=== PATIENT | female | born 1995 | race Caucasian/White ===

== ENCOUNTER → 2019-11-15 15:25 | Outpatient (CLI) | payer OTHER, SELFPAY ==
[2019-11-15 16:43] LABS: hCG Titer Quant., Serum 294 mIU/mL (1-3)
== END ==
PROVIDERS: Referring Provider Obstetrics & Gynecology; Visit Provider Obstetrics & Gynecology
DX: Z78.9 Other specified health status (principal)
CPT/HCPCS: 36415; 84702

== ENCOUNTER → 2019-11-17 13:03 | Outpatient (CLI) | payer OTHER, SELFPAY ==
[2019-11-17 13:52] LABS: hCG Titer Quant., Serum 738 mIU/mL (1-3)
== END ==
LOC: LAB 13:05
PROVIDERS: Visit Provider Obstetrics & Gynecology
DX: O20.0 Threatened abortion (principal)
CPT/HCPCS: 84702

== ENCOUNTER → 2019-12-19 16:08 | Outpatient (CLI) | payer OTHER, SELFPAY ==
[2019-12-19 10:58] VITALS: BMI 32.6
[2019-12-19 19:07] LABS: Chlamydia Trachomatis by PCR Negative (Negative); Neisserai gonorrhoeae by PCR Negative (Negative); Probe Check PASS; Sample Adequacy Control PASS; Specimen Processing Control PASS
[2019-12-24 12:29] LABS: HPV Reflexed? NOT INDICATED
== END ==
PROVIDERS: Referring Provider Obstetrics & Gynecology; Visit Provider Obstetrics & Gynecology
DX: O09.90 Supervision of high risk pregnancy, unspecified, unspecified trimester (principal); Z12.4 Encounter for screening for malignant neoplasm of cervix
CPT/HCPCS: 87491; 87591; 88175; G0145

== ENCOUNTER → 2020-01-04 14:26 | Outpatient (CLI) | payer OTHER, SELFPAY ==
[2019-12-19 10:58] VITALS: BMI 32.6
[2020-01-04 15:34] LABS: Absolute Lymphocyte Count 2.07 X10^3/uL (0.83-4.51); Basophil# 0.03 X10^3/uL; Basophil% 0.3 % (0-1); Eosinophil# 0.12 X10^3/uL; Eosinophils% 1.4 % (0-5); Hematocrit 39.4 % (37-47); Hemoglobin 13.1 g/dL (12.0-15.0); Lymphocyte # 2.07 X10^3/ul (4.0); Lymphocyte % 23.7 % (19-41); Mean Corp Hgb Conc 33.2 g/dL (32-36); Mean Corpuscular Hgb 29.4 pg (27.0-32.0); Mean Corpuscular Volume 88.5 fL (81-99); Monocyte# 0.45 X10^3/uL; Monocyte% 5.2 % (0-10); NRBC Flagged by Analyzer 0 % (0-5); Neutrophil # 6.03 X10^3/uL (2.7-7.7); Neutrophil % 69.2 % (47-70); Platelet Count 243 K/mm3 (150-450); RBC Distribution Width CV 11.9 % (11.6-14.6); RBC Distribution Width SD 38.1 fl (35.1-43.9); Red Blood Count 4.45 M/mm3 (4.2-5.4); White Blood Count 8.7 K/mm3 (4.4-11.0)
[2020-01-04 15:45] LABS: NATERA MAILED SPECIMEN
[2020-01-04 16:10] LABS: Amphetamine Urine VISTA NEGATIVE (<1000 ng/mL); Barbiturate Urine VISTA NEGATIVE (< 200 ng/mL); Benzodiazepine Urine VISTA NEGATIVE (< 200 ng/mL); Cocaine Urine VISTA NEGATIVE (< 300 ng/mL); Ecstacy Urine VISTA NEGATIVE (< 500 ng/mL); Methadone Urine VISTA NEGATIVE (< 300 ng/mL); PCP Urine VISTA NEGATIVE (< 25 ng/mL); THC Urine VISTA NEGATIVE (< 50 ng/mL); Vista UDS pH Range 5
[2020-01-07 11:31] LABS: HIV - WCH Non-Reactive (Nonreactive); Hepatitis B Surface Antigen Non-Reactive (Nonreactive); Hepatitis C Antibody Non-Reactive (Nonreactive); Rubella IgG 117.9 IU/mL
[2020-01-10 02:25] LABS: Rapid Plasmin Reagin (RPR) NONREACTIVE (NONREACTIVE)
== END ==
PROVIDERS: Referring Provider Obstetrics & Gynecology; Visit Provider Obstetrics & Gynecology
DX: Z34.81 Encounter for supervision of other normal pregnancy, first trimester (principal); Z31.430 Encounter of female for testing for genetic disease carrier status for procreative management; O09.90 Supervision of high risk pregnancy, unspecified, unspecified trimester
CPT/HCPCS: 80307; 85025; 86592; 86703; 86762; 86803; 86850; 86900; 86901; 87086; 87088; 87340

== ENCOUNTER → 2020-02-22 11:32 | Outpatient (CLI) | payer OTHER, SELFPAY ==
[2020-02-22 11:26] VITALS: BMI 32.6
== END ==
PROVIDERS: Referring Provider Obstetrics & Gynecology; Visit Provider Obstetrics & Gynecology
DX: Z36.9 Encounter for antenatal screening, unspecified (principal); Z3A.00 Weeks of gestation of pregnancy not specified
CPT/HCPCS: 36415

== ENCOUNTER 2020-04-30 06:50 | Outpatient (CLI) | payer OTHER, SELFPAY ==
[2020-04-18 11:21] VITALS: BMI 32.6
[2020-04-30 07:14] VITALS: BP 110/73; PULSE 91; TEMP 36.4
[2020-04-30 07:45] LABS: ROM Internal Control Test YES-OK TO RESULT pt. (Internal QC)
[2020-04-30 08:04] LABS: ROM Patient Test Negative (Negative)
[2020-04-30 09:53] VITALS: BMI 35.6
--- NOTE | 2020-05-01 21:42 | OB.TRI.PN_ITS ---
Progress Notes Date of Service: 04/30/20 Progress Note: Patient presents for triage evaluation secondary to false labor FHT: 145 Moderate variability reactive no decelerations category I tracing [place]: No regular contractions Assessment and plan: False labor no cervical change negative ROM plus reactive NST, reassuring maternal and status patient discharged to home to follow- up scheduled. See problem list details for additional plan information. Laboratory Studies: Laboratory Tests 04/30/20 Range/Units 07:30 Vag Amniotic Fld Detect Negative (Negative) Multi Select Codes - Urinary/Genital Urinary/Genital CPT Codes: 16428-59 non-stress test Interp
[2020-06-18 01:32] VITALS: BP 131/82
[2020-06-18 01:33] VITALS: PULSE 80; O2SAT 98
[2020-06-18 01:44] VITALS: PULSE 78; O2SAT 97
== END 2020-04-30 08:40 | disposition home or self-care (01) ==
LOC: WPOUT 07:08 → WP 07:08
PROVIDERS: Referring Provider Obstetrics & Gynecology; Visit Provider Obstetrics & Gynecology
DX: O47.9 False labor, unspecified (principal); Z3A.00 Weeks of gestation of pregnancy not specified
CPT/HCPCS: 59025; 59050; 84112; 99218; G0378

== ENCOUNTER → 2020-05-02 12:31 | Outpatient (CLI) | payer OTHER, SELFPAY ==
[2020-05-02 12:19] VITALS: BMI 35.6
[2020-05-02 13:19] LABS: Absolute Neutrophil Count 5.9 X10^3/uL (2.0-7.7); Basophil# 0.02 X10^3/uL; Basophil% 0.3 % (0-1); Eosinophil# 0.07 X10^3/uL; Eosinophils% 0.9 % (0-5); Hematocrit 33.5 % (37-47); Hemoglobin 11.1 g/dL (12.0-15.0); Lymphocyte % 16.9 % (19-41); Mean Corp Hgb Conc 33.1 g/dL (32-36); Mean Corpuscular Hgb 30.2 pg (27.0-32.0); Mean Corpuscular Volume 91.3 fL (81-99); Mean Platelet Vol. 9.6 fl (6.2-12.0); Monocyte# 0.31 X10^3/uL; NRBC Flagged by Analyzer 0 % (0-5); Neutrophil # 5.94 X10^3/uL (2.7-7.7); Neutrophil % 77.4 % (47-70); Platelet Count 232 K/mm3 (150-450); RBC Distribution Width CV 12.9 % (11.6-14.6); RBC Distribution Width SD 42.7 fl (35.1-43.9); Red Blood Count 3.67 M/mm3 (4.2-5.4); White Blood Count 7.7 K/mm3 (4.4-11.0)
[2020-05-02 13:42] LABS: Glucose Challenge Gest 1H 50g 145 mg/dL (70-140)
== END ==
PROVIDERS: Referring Provider Obstetrics & Gynecology; Visit Provider Obstetrics & Gynecology
DX: O09.90 Supervision of high risk pregnancy, unspecified, unspecified trimester (principal); Z3A.00 Weeks of gestation of pregnancy not specified
CPT/HCPCS: 36415; 82950; 85025

== ENCOUNTER → 2020-05-07 10:14 | Outpatient (CLI) | payer OTHER, SELFPAY ==
[2020-05-02 12:19] VITALS: BMI 35.6
[2020-05-07 12:27] LABS: Glucose GTT-Gestational 1 Hr 144 mg/dL (<190)
[2020-05-07 12:34] LABS: Glucose GTT-Gestation. Fasting 79 mg/dL (<105)
[2020-05-07 13:52] LABS: Glucose GTT-Gestational 2 Hr 102 mg/dL (<165)
[2020-05-07 14:06] LABS: Glucose GTT-Gestational 3 Hr 84 L (<145)
== END ==
PROVIDERS: Referring Provider Obstetrics & Gynecology; Visit Provider Obstetrics & Gynecology
DX: O99.810 Abnormal glucose complicating pregnancy (principal); Z3A.00 Weeks of gestation of pregnancy not specified
CPT/HCPCS: 36415; 82951; 82952

== ENCOUNTER 2020-06-18 01:01 | Outpatient (CLI) | payer OTHER, SELFPAY ==
[2020-06-16 13:18] VITALS: BMI 35.6
[2020-06-18 01:32] VITALS: TEMP 37.4
[2020-06-18 01:50] VITALS: BMI 39.2
[2020-06-18 02:32] VITALS: BP 101/64; PULSE 75; TEMP 37.1
[2020-06-18 02:35] LABS: ROM Internal Control Test YES-OK TO RESULT pt. (Internal QC); ROM Patient Test Negative (Negative)
[2020-06-18 02:47] VITALS: BP 100/68; PULSE 88
--- NOTE | 2020-06-18 03:06 | OB.TRI.PN ---
Progress Notes Date of Service: 06/18/20 Progress Note: Patient presents for triage evaluation secondary to possible rupture membranes threatened labor FHT: 130 Moderate variability reactive no decelerations category I tracing [place]: no Contractions Assessment and plan: threatened ptl negative rom Reactive NST, reassuring maternal and status patient discharged to home to follow-up . See problem list details for additional plan information. Laboratory Studies: Laboratory Tests 06/18/20 Range/Units 01:48 Vag Amniotic Fld Detect Negative (Negative) Multi Select Codes - Urinary/Genital Urinary/Genital CPT Codes: 35854-12 non-stress test Interp
[2020-06-18 03:15] LABS: Group B Strep DNA By PCR Negative (Negative); Internal Control PASS; Probe Check PASS; Specimen Processing Control PASS
== END 2020-06-18 03:15 | disposition home or self-care (01) ==
LOC: WPOUT 01:13 → WP 06-19 06:11
PROVIDERS: Visit Provider Obstetrics & Gynecology
DX: O47.9 False labor, unspecified (principal)
CPT/HCPCS: 59025; 59050; 84112; 87081; 87653; 94760; 99218; G0378

== ENCOUNTER 2020-07-16 05:50 | Inpatient (IN) | payer OTHER, SELFPAY ==
[2020-06-02 13:33] VITALS: BMI 37.8
[2020-07-15 09:28] VITALS: BMI 39.2
[2020-07-16] VITALS (26 sets, daily range): BP systolic 92–113; BP diastolic 53–79; PULSE 74–98; RESP 12–20; TEMP 36.2–37.1; O2SAT 95–100; BMI 41.1
[2020-07-16] MEDS: Lactated Ringers 1,000 ML 999 ML IV (06:30)
[2020-07-16] MEDS: Acetaminophen 500 MG Tablet 1000 MG PO ×4 (06:36→23:41)
[2020-07-16 06:41] LABS: Absolute Lymphocyte Count 2.12 X10^3/uL (0.83-4.51); Absolute Neutrophil Count 6.1 X10^3/uL (2.0-7.7); Basophil# 0.04 X10^3/uL; Basophil% 0.4 % (0-1); Eosinophil# 0.07 X10^3/uL; Eosinophils% 0.8 % (0-5); Hematocrit 35.9 % (37-47); Hemoglobin 11.9 g/dL (12.0-15.0); Lymphocyte # 2.12 X10^3/ul (4.0); Lymphocyte % 23.8 % (19-41); Mean Corp Hgb Conc 33.1 g/dL (32-36); Mean Corpuscular Hgb 30.1 pg (27.0-32.0); Mean Corpuscular Volume 90.7 fL (81-99); Monocyte% 6.7 % (0-10); NRBC Flagged by Analyzer 0 % (0-5); Neutrophil # 6.05 X10^3/uL (2.7-7.7); Neutrophil % 67.9 % (47-70); Platelet Count 213 K/mm3 (150-450); RBC Distribution Width CV 13.1 % (11.6-14.6); RBC Distribution Width SD 43.1 fl (35.1-43.9); Red Blood Count 3.96 M/mm3 (4.2-5.4); White Blood Count 8.9 K/mm3 (4.4-11.0)
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
[2020-07-16] MEDS: Sodium Citrate/Citric Acid 30 ML UDC PO (07:31)
[2020-07-16] MEDS: Lactated Ringers 1,000 ML 150 ML IV (07:33)
[2020-07-16] MEDS: Oxytocin 30 units/NS 500 ml 30 UNITS/500 ML IV.SOLN 167 UNITS IV (09:05)
--- NOTE | 2020-07-16 09:08 | OP.PCM_ITS ---
Problem List (1) delivery delivered Status: Acute (2) Abnormal glucose affecting Status: Acute Comment: Normal 3 hr (3) Anxiety and depression Status: Acute Comment: encouraged celexa, counseling encouraged. on vyvanse to function at work, limits as much as possible, discussed risks (4) History of delivery Status: Acute Comment: reviewed operative record, discussed TOLAC, vertical skin LTCS uterine. plan ltcs 07/21/20 with SM (5) History of placenta abruption Status: Acute Comment: APL panel normal (6) Influenza vaccine administered Status: Acute Comment: 07/03/2020sc (7) Status: Acute Qualifiers: Comment: NIPT low risk. Carrier screening 14 out of 14, anatomy normal. AFP negative (8) Supervision of high risk , antepartum Status: Acute Comment: PRR [facility] 07/21/20 [facility] [place] Kev Delivery Final ROBERTH: 07/21/20 Gestational age: 39 Weeks and 2 Days Type of Anesthesia:: Spinal Special Medications: Gentamicin, Clindamycin Date of Procedure: 07/16/20 Pre-Operative Diagnosis: IUP at 39 weeks, Hx section Post-Operative Diagnosis: same Indications: Gin Cantu is a 25-year-old G2, P1 at 39 weeks gestation who presents for a scheduled repeat section. The risks, benefits, indications, and alternatives to the procedure were discussed with the patient including bleeding, infection, and visceral or vascular injury. Patient voices understanding and agrees to proceed. Indications for : Repeat Elective Description of Procedure: The patient is a 25-year-old G2, P1 at 39 weeks gestation presented for scheduled repeat . Spinal anesthesia was placed without difficulty. Watts catheter was placed. The patient was placed in the dorsal supine position with leftward tilt. Patient was prepped and draped in the normal sterile fashion. Prior vertical midline skin incision was identified and a vertical midline skin incision was made with the scalpel and carried through to the underlying layer of fascia with the bovie. Fascia was nicked in the midline and the incision extended superiorly and inferiorly. The rectus bellies were easily in the midline and the peritoneum was entered digitally. The incision was stretched and a low transverse uterine incision was made with the scalpel. The infant's head was delivered atraumatically followed by the anterior and posterior shoulders without complication the rest of the infant delivered. The cord was clamped and cut and the infant was handed off to awaiting nurse. The placenta was delivered spontaneously immediately following and was noted to be intact and have a three-vessel cord. The uterus was exteriorized cleared of all clots and debris, and the incision was closed in a double layer closure using #1 Monocryl. Figures of eight of 0-vicryl and 3-0 monocryl were used to obtain hemostasis. The ovaries and fallopian tubes were noted to be within normal limits. The uterus was returned to the maternal abdomen and gutters were cleared of all clots and debris. The peritoneum was closed with 3-0 Monocryl in a running fashion. Gloves were changed prior to fascial closure. Fascia was closed with 0 PDS in a running fashion. Subcutaneous tissue was copiously irrigated. 3-0 monocryl used in a running fashion to close the subcutaneous space and decrease tension on the incision. The skin was closed with 3-0 Monocryl in a subcuticular fashion. Mepilex dressing was applied without complication. Patient was taken to recovery in stable condition. Amniotic Membrane Rupture Type: Artificial Amniotic Fluid Description: Clear Placenta Disposition: [facility] Drain: Watts to straight drain Fluids Replaced: 1300 cc Cord Entanglement: None Cord Vessel Description: 3 Vessels Esitmated Blood Loss (ml): 500 cc Gender: Male Delayed cord clamping: Yes Antibiotic Given: Clindamycin 600mg IV x1 and Gentamicin 1.5mg/kg IV x1 Pt instructed on risks of surgery: Bleeding, Anesthesia Risks, Infection, Injury to surrounding structure(s) including bowel and bladder Complications: None - Admit VTE Documentation VTE Present on Admission: No VTE Mechan Device Prophylaxis: SCD's VTE Pharm Prophylaxis ordered?: Yes Multi Select Codes - Urinary/Genital Urinary/Genital CPT Codes: 23825 [facility]
[2020-07-16] MEDS: proCHLORPERazine 10 MG/2 ML Vial IV (10:49)
[2020-07-16] MEDS: Lactated Ringers 1,000 ML 100 ML IV ×2 (13:15→23:40)
[2020-07-16] MEDS: Senna/Docusate Sodium 1 Tablet PO (14:15)
[2020-07-16] MEDS: Ketorolac 30 MG/ML Syringe IV ×2 (14:17→20:21)
--- NOTE | 2020-07-16 14:50 | NURSING ---
reviewed student nurse charting that is used for educational and learning process.
[2020-07-16] MEDS: Enoxaparin 40 MG/0.4 ML Syringe SC (20:21)
[2020-07-17] VITALS (9 sets, daily range): BP systolic 89–111; BP diastolic 50–74; PULSE 99–113; RESP 16–18; TEMP 36.7–37.2; O2SAT 96–100
[2020-07-17] MEDS: Ketorolac 30 MG/ML Syringe IV ×2 (02:18→08:34)
[2020-07-17 05:48] LABS: Hematocrit 32.3 % (37-47); Hemoglobin 10.6 g/dL (12.0-15.0); Mean Corp Hgb Conc 32.8 g/dL (32-36); Mean Corpuscular Hgb 29.9 pg (27.0-32.0); Mean Corpuscular Volume 91.2 fL (81-99); Platelet Count 147 K/mm3 (150-450); RBC Distribution Width CV 13.2 % (11.6-14.6); RBC Distribution Width SD 43.9 fl (35.1-43.9); Red Blood Count 3.54 M/mm3 (4.2-5.4)
[2020-07-17] MEDS: Acetaminophen 500 MG Tablet 1000 MG PO ×3 (06:38→18:42)
--- NOTE | 2020-07-17 08:20 | PCM.PN.OB ---
Patient Problems: Active and Suspected Problems (Last Reviewed 07/15/20 @ 09:27 by Kathe Alvarez) delivery delivered (Acute) Subjective: Patient doing well without complaints. Tolerating PO. Pain well controlled without opioids. Ambulating and voiding without difficulty. Breast feeding well. Denies chest pain, shortness of breath, calf pain/swelling, fevers, chills, lightheadedness. Objective: Laboratory Tests 07/17/20 07/16/20 07/16/20 Range/Units 05:30 06:30 06:30 WBC 6.0 8.9 (4.4-11.0) K/mm3 RBC 3.54 L 3.96 L (4.2-5.4) M/mm3 Hgb 10.6 L 11.9 L (12.0-15.0) g/dL Hct 32.3 L 35.9 L (37-47) % MCV 91.2 90.7 (81-99) fL MCH 29.9 30.1 (27.0-32.0) pg MCHC 32.8 33.1 (32-36) g/dL RDW Std Deviation 43.9 43.1 (35.1-43.9) fl RDW Coeff of Richa 13.2 13.1 (11.6-14.6) % Plt Count 147 L 213 (150-450) K/mm3 MPV 10.0 10.0 (6.2-12.0) fl Immature Gran % (Auto) 0.400 (0.0-0.9) % Neut % (Auto) 67.9 (47-70) % Lymph % (Auto) 23.8 (19-41) % [place] % (Auto) 6.7 (0-10) % Eos % (Auto) 0.8 (0-5) % Baso % (Auto) 0.4 (0-1) % Absolute Neuts (auto) 6.1 (2.0-7.7) X10^3/uL Absolute Lymphs (auto) 2.12 (0.83-4.51) X10^3/uL Nucleated RBC % 0 (0-5) % Blood Type O POSITIVE Antibody Screen NEGATIVE - Physical Exam Vitals/I&O's: Vital Signs Temp Pulse Resp BP Pulse Ox 98.9 F 100 16 111/74 98 07/17/20 05:18 07/17/20 07:20 07/17/20 07:20 07/17/20 04:00 07/17/20 07:20 Oxygen Delivery Method Room Air Weight: 218 lb Body Mass Index (BMI) 41.1 Intake and Output for Last 24 Hours 07/15/20 07/16/20 07/17/20 23:59 23:59 23:59 Intake Total 3962 / 3962 583.33 / 583.33 Output Total 950 / 950 1550 / 1550 Balance 3012 / 3012 -966.67 / -966.67 General: Alert, Oriented x3, Cooperative, No apparent distress, Well developed, Well nourished HEENT: Atraumatic, PERRLA, EOMI, Normocephalic Oral: Moist Mucosa Neck: Supple, No JVD Lungs: Normal air movement Cardiovascular: Regular rate Abdomen: Soft, Non Tender, Non-Distended, - - incision c/d/i Extremities: No Calf Tenderness, Edema - 1+ Neurological: Cranial nerves II-XII grossly intact, Neuro grossly intact Psych/Mental Status: Normal Affect, Appropriate, Alert and oriented to time, place, person, mood and affect Laboratory Results 07/16/20 06:30: Blood Type O POSITIVE, Antibody Screen NEGATIVE 07/17/20 05:30: WBC 6.0, RBC 3.54 L, Hgb 10.6 L, Hct 32.3 L, MCV 91.2, MCH 29.9, MCHC 32.8, RDW Std Deviation 43.9, RDW Coeff of Richa 13.2, Plt Count 147 L, MPV 10.0 Current Medications Acetaminophen (Tylenol) 1,000 mg PO Q6 [facility] Last Admin: 07/17/20 06:38 Dose: 1,000 mg Documented by: Bisacodyl (Dulcolax) 10 mg RECTAL UD PRN PRN Reason: If no BM Diphenhydramine HCl (Benadryl) 25 mg PO Q6H PRN PRN PRN Reason: ITCHING Stop: 07/17/20 09:09 Enoxaparin Sodium (Lovenox) 40 mg SC DAILY [facility] Last Admin: 07/16/20 20:21 Dose: 40 mg Documented by: Hydrocortisone (Hytone) 1 applic TOPICAL TID PRN PRN; Protocol PRN Reason: Discomfort Lactated Ringer's () 1,000 mls @ 100 mls/hr IV .Q10H [facility] Last Infusion: 07/17/20 05:30 Dose: Infused Documented by: Naloxone HCl 4 mg/ Dextrose 504 mls @ 0 mls/hr IV .Q0M PRN; Protocol PRN Reason: Respiratory depression Methylergonovine Maleate (Methergine) 0.2 mg IM X1 PRN PRN Reason: Uterine Atony Nalbuphine HCl (Nubain) 5 mg IV Q3H PRN PRN PRN Reason: ITCHING Stop: 07/17/20 09:09 Naloxone HCl (Narcan) 0.02 mg IV Q1M PRN PRN Reason: RR <10 and pt unresponsive Naproxen (Naprosyn) 500 mg PO Q8H [facility] Ondansetron HCl (Zofran) 4 mg IV Q4H PRN PRN PRN Reason: Nausea Oxycodone HCl (Oxyir) 5 - 10 mg PO Q4H PRN PRN PRN Reason: Pain Score 4-10/10 Prochlorperazine Edisylate (Compazine Iv) 10 mg IV Q6H PRN PRN PRN Reason: NAUSEA Last Admin: 07/16/20 10:49 Dose: 10 mg Documented by: Senna/Docusate Sodium (Senokot-S, Summer-Colace) 0 tablet PO DAILY [facility] Last Admin: 07/16/20 14:15 Dose: 2 tablet Documented by: Simethicone (Mylicon) 80 mg PO PCHS PRN PRN Reason: Indigestion/stomach pain Sodium Chloride () 5 - 15 ml IV UD PRN PRN Reason: SALINE FLUSH Medical Necessity - Tobacco Use Smoking Status: Former smoker Assessment/Plan All Active Problems (Last Reviewed 07/15/20 @ 09:27 by Kathe Alvarez) delivery delivered (Acute) Influenza vaccine administered (Acute) Abnormal glucose affecting (Acute) (Acute) History of placenta abruption (Acute) Anxiety and depression (Acute) Supervision of high risk , antepartum (Acute) History of delivery (Acute) s/p LTCS PPD #1 1. routine post care 2. breast feeding- support given 3. rh positive 4. rubella immune
[2020-07-17] MEDS: 0.9% Saline Lock 10 ML Syringe IV (08:34)
[2020-07-17] MEDS: Senna/Docusate Sodium 1 Tablet PO (10:22)
[2020-07-17] MEDS: Enoxaparin 40 MG/0.4 ML Syringe SC (10:22)
[2020-07-17] MEDS: Naproxen 250 MG Tablet 500 MG PO ×2 (14:12→21:41)
--- NOTE | 2020-07-17 20:15 | DCINST_ITS ---
Discharge Diet: No Restrictions Discharge Activity: May Not Drive - for 2 weeks or while taking narcotic pain meds., May Shower, May Take a Tub Bath - in 7 days. May resume sexual activity in: 4-6 weeks Lifting Restrictions: 20 pounds Additional Activity Instructions:: Nothing in the vagina for 4-6 weeks. You may return to work/school in 6 weeks. Call your doctor if your incision/area has: Continuous Slow Oozing, Sudden Increased Bleeding, Increased Pain/ Swelling, Increased Redness, Foul Smelling Discharge Call your doctor if you observe: Fever of 101 or Higher Suture Line Care: Avoid Pulling/Pushing, Avoid Pinching/Bending Remove Dressing in (days):: 7 Additional Instructions: If you experience any of the following, contact your healthcare provider. * Bleeding that soaks a pad every hour for 2 hours * Fever 100.4 or higher * Unrelieved incision or abdominal pain * Swelling, redness, discharge or bleeding from your incision or episiotomy site * Your incision begins to separate * Problems urinating (including inability to urinate or burning while urinating). * Visual changes * Severe headache * Flu-like symptoms * Pain or redness in one of both of your breasts * Pain, warmth, tenderness or swelling in your legs, especially the calf area * Frequent nausea and vomiting * Symptoms of depression or anxiety If you experience any of the following, call 911 or go to the nearest Emergency Room. * Chest pain * Problems breathing * Seizure activity * Partial or complete paralysis of a body part, slurred speech, weakness or drooping of the face, or a sudden inability to walk or hold your balance Allergies/Adverse Reactions: Allergies Cephalosporins Allergy (Verified 07/16/20 06:05) Anaphylaxis Sulfa (Sulfonamide Antibiotics) Allergy (Verified 07/16/20 06:05) Anaphylaxis Medications to take at Discharge vitamin#30 30 mg iron-10 mg iron-folic acid 1 mg-omg3 capsule 1 cap PO DAILY 11/20/19 Naproxen [Naprosyn] 250 - 500 mg PO Q8H PRN PRN #30 tab 07/17/20 Oxycodone [Oxyir] 5 mg PO Q6H PRN PRN 7 Days #15 tab 07/17/20 The following prescriptions were given: Naproxen [Naprosyn] 250 - 500 mg PO Q8H PRN PRN #30 tab PRN Reason: MILD PAIN Transmission Status: Received by [id number] Oxycodone [Oxyir] 5 mg PO Q6H PRN PRN 7 Days #15 tab PRN Reason: Pain Score 6-10/10 Transmission Status: Received by [id number] Follow-Up: Call to make an appointment with your doctor for an incision check in 1-2 weeks. You will also need a 6 week post- follow up appointment. Test results from this visit will be discussed in further detail at your follow- up appointment, if applicable. Primary Care Physician: EBER SORIANO [Other]
[2020-07-18] MEDS: Acetaminophen 500 MG Tablet 1000 MG PO ×2 (00:57→06:55)
[2020-07-18 01:00] VITALS: BP 109/70; PULSE 88; RESP 16; TEMP 37.1
[2020-07-18] MEDS: Naproxen 250 MG Tablet 500 MG PO (05:58)
--- NOTE | 2020-07-18 08:08 | PN.OBGYN_ITS ---
Patient Problems: Active and Suspected Problems (Last Reviewed 07/15/20 @ 09:27 by Kathe Alvarez) delivery delivered (Acute) Subjective: Came to room to check on patient, but she is currently in the shower. Discussed with RN and patient doing well and desires discharge to home. Objective: Laboratory Tests 07/17/20 07/16/20 07/16/20 Range/Units 05:30 06:30 06:30 WBC 6.0 8.9 (4.4-11.0) K/mm3 RBC 3.54 L 3.96 L (4.2-5.4) M/mm3 Hgb 10.6 L 11.9 L (12.0-15.0) g/dL Hct 32.3 L 35.9 L (37-47) % MCV 91.2 90.7 (81-99) fL MCH 29.9 30.1 (27.0-32.0) pg MCHC 32.8 33.1 (32-36) g/dL RDW Std Deviation 43.9 43.1 (35.1-43.9) fl RDW Coeff of Richa 13.2 13.1 (11.6-14.6) % Plt Count 147 L 213 (150-450) K/mm3 MPV 10.0 10.0 (6.2-12.0) fl Immature Gran % (Auto) 0.400 (0.0-0.9) % Neut % (Auto) 67.9 (47-70) % Lymph % (Auto) 23.8 (19-41) % Mower % (Auto) 6.7 (0-10) % Eos % (Auto) 0.8 (0-5) % Baso % (Auto) 0.4 (0-1) % Absolute Neuts (auto) 6.1 (2.0-7.7) X10^3/uL Absolute Lymphs (auto) 2.12 (0.83-4.51) X10^3/uL Nucleated RBC % 0 (0-5) % Blood Type O POSITIVE Antibody Screen NEGATIVE - Physical Exam Vitals/I&O's: Vital Signs Temp Pulse Resp BP Pulse Ox 98.7 F 88 16 109/70 100 07/18/20 01:00 07/18/20 01:00 07/18/20 01:00 07/18/20 01:00 07/17/20 19:55 Oxygen Delivery Method Room Air Weight: 218 lb Body Mass Index (BMI) 41.1 Intake and Output for Last 24 Hours 07/16/20 07/17/20 07/18/20 23:59 23:59 23:59 Intake Total 3962 / 3962 783.33 / 783.33 Output Total 950 / 950 1950 / 1950 Balance 3012 / 3012 -1166.67 / -1166.67 Current Medications Acetaminophen (Tylenol) 1,000 mg PO Q6 [facility] Last Admin: 07/18/20 06:55 Dose: 1,000 mg Documented by: Bisacodyl (Dulcolax) 10 mg RECTAL UD PRN PRN Reason: If no BM Enoxaparin Sodium (Lovenox) 40 mg SC DAILY [facility] Last Admin: 07/17/20 10:22 Dose: 40 mg Documented by: Hydrocortisone (Hytone) 1 applic TOPICAL TID PRN PRN; Protocol PRN Reason: Discomfort Naloxone HCl 4 mg/ Dextrose 504 mls @ 0 mls/hr IV .Q0M PRN; Protocol PRN Reason: Respiratory depression Methylergonovine Maleate (Methergine) 0.2 mg IM X1 PRN PRN Reason: Uterine Atony Naloxone HCl (Narcan) 0.02 mg IV Q1M PRN PRN Reason: RR <10 and pt unresponsive Naproxen (Naprosyn) 500 mg PO Q8H [facility] Last Admin: 07/18/20 05:58 Dose: 500 mg Documented by: Ondansetron HCl (Zofran) 4 mg IV Q4H PRN PRN PRN Reason: Nausea Oxycodone HCl (Oxyir) 5 - 10 mg PO Q4H PRN PRN PRN Reason: Pain Score 4-10/10 Prochlorperazine Edisylate (Compazine Iv) 10 mg IV Q6H PRN PRN PRN Reason: NAUSEA Last Admin: 07/16/20 10:49 Dose: 10 mg Documented by: Senna/Docusate Sodium (Senokot-S, Summer-Colace) 0 tablet PO DAILY [facility] Last Admin: 07/17/20 10:22 Dose: 2 tablet Documented by: Simethicone (Mylicon) 80 mg PO [facility] PRN PRN Reason: Indigestion/stomach pain Last Admin: 07/18/20 01:00 Dose: 80 mg Documented by: Sodium Chloride () 5 - 15 ml IV UD PRN PRN Reason: SALINE FLUSH Last Admin: 07/17/20 08:34 Dose: 10 ml Documented by: Medical Necessity - Tobacco Use Smoking Status: Former smoker Assessment/Plan All Active Problems (Last Reviewed 07/15/20 @ 09:27 by Kathe Alvarez) delivery delivered (Acute) Influenza vaccine administered (Acute) Abnormal glucose affecting (Acute) (Acute) History of placenta abruption (Acute) Anxiety and depression (Acute) Supervision of high risk , antepartum (Acute) History of delivery (Acute) s/p LTCS PPD # 2 1. routine post care 2. breast feeding- support given 3. rh positive 4. rubella immune
[2020-07-18 08:50] VITALS: BP 119/79; PULSE 101; RESP 16; TEMP 36.9
[2020-07-18] MEDS: Enoxaparin 40 MG/0.4 ML Syringe SC (10:55)
[2020-07-18] MEDS: Senna/Docusate Sodium 1 Tablet PO (10:56)
--- NOTE | 2020-07-21 07:50 | DS.PCM_ITS ---
Discharge Date and Diagnosis Date of Admission: 07/16/20 Date of Discharge: 07/18/20 Hospital Course and Treatment Operations: - - Summary of Care Provided: The patient is a 25 year old F . Patient underwent section with r outine recovery and return of bowel and bladder function. Ambulating, voiding, and tolerating PO. Stable for discharge home POD#3. - Physical Exam Vitals/I&O's: Vital Signs Temp Pulse Resp BP Pulse Ox 98.5 F 101 H 16 119/79 100 07/18/20 08:50 07/18/20 08:50 07/18/20 08:50 07/18/20 08:50 07/17/20 19:55 Oxygen Delivery Method Room Air Weight: 218 lb Body Mass Index (BMI) 41.1 Discharge Diet: No Restrictions Discharge Activity: May Not Drive - for 2 weeks or while taking narcotic pain meds., May Shower, May Take a Tub Bath - in 7 days. May resume sexual activity in: 4-6 weeks Additional Activity Instructions:: Nothing in the vagina for 4-6 weeks. You may return to work/school in 6 weeks. Call your doctor if your incision/area has: Continuous Slow Oozing, Sudden Increased Bleeding, Increased Pain/ Swelling, Increased Redness, Foul Smelling Discharge Call your doctor if you observe: Fever of 101 or Higher Suture Line Care: Avoid Pulling/Pushing, Avoid Pinching/Bending Remove Dressing in (days):: 7 Home Medications: Medications to take at Discharge vitamin#30 30 mg iron-10 mg iron-folic acid 1 mg-omg3 capsule 1 cap PO DAILY 11/20/19 Naproxen [Naprosyn] 250 - 500 mg PO Q8H PRN PRN #30 tab 07/17/20 Oxycodone [Oxyir] 5 mg PO Q6H PRN PRN 7 Days #15 tab 07/17/20 Following Prescriptions Were Given to Patient: Naproxen [Naprosyn] 250 - 500 mg PO Q8H PRN PRN #30 tab PRN Reason: MILD PAIN Transmission Status: Received by [id number] [facility] Oxycodone [Oxyir] 5 mg PO Q6H PRN PRN 7 Days #15 tab PRN Reason: Pain Score 6-10/10 Transmission Status: Received by [id number] [facility] Primary Care Physician: EBER SORIANO [Other] Medical Necessity - Tobacco Use Smoking Status: Former smoker Meaningful Use Info Meaningful Use Diagnoses (Choose all that apply): None applicable
== END 2020-07-18 11:25 | disposition home or self-care (01) | DRG 788 ==
PROVIDERS: Admitting Provider Obstetrics & Gynecology; Visit Provider Obstetrics & Gynecology
PROC: (CPT 59514; principal; 2020-07-16 07:15)
DX: O65.5 Obstructed labor due to abnormality of maternal pelvic organs (principal); O34.211 Maternal care for low transverse scar from previous cesarean delivery; N85.8 Other specified noninflammatory disorders of uterus; O99.814 Abnormal glucose complicating childbirth; O99.334 Smoking (tobacco) complicating childbirth; F17.210 Nicotine dependence, cigarettes, uncomplicated; Z3A.39 39 weeks gestation of pregnancy; Z37.0 Single live birth; Z87.59 Personal history of other complications of pregnancy, childbirth and the puerperium
CPT/HCPCS: 85025; 85027; 86850; 86900; 86901; 94762; 99218; 99251; J7120; A4216; G0378; G0463; J2405

== ENCOUNTER → 2021-10-13 16:03 | Outpatient (CLI) | payer OTHER, SELFPAY | PROVIDERS: Visit Provider Obstetrics & Gynecology | DX: R82.90 Unspecified abnormal findings in urine (principal); N89.8 Other specified noninflammatory disorders of vagina | CPT/HCPCS: 87070; 87086; 87088; 87186; 87205 ==

== ENCOUNTER 2021-11-02 11:16 | Outpatient (CLI) | payer OTHER, SELFPAY ==
--- NOTE | 2021-11-02 11:21 | US_ITS ---
STUDY: ULTRASOUND OF THE FEMALE PELVIS - COMPLETE REASON FOR EXAM: Female, 26 years old. Pelvic pain LMP: Unsure. TECHNIQUE: Transabdominal and Transvaginal TECHNICAL QUALITY: Adequate. COMPARISON: None. FINDINGS: The uterus is anteverted and is in a midline position. The uterus measures 6.9 cm x 4.5 cm x 3.6 cm. Normal uterine cervix. The endometrium measures 5.1 mm in thickness, and is hyperechoic. There is no demonstrated endometrial mass. There is no demonstrated myometrial mass. I.U.D. - The patient does have an I.U.D.. There appears to be abnormal placement of the IUD in the lower uterine segments. There is a 3.5 cm x 3.3 cm x 4.6 cm hypoechoic solid nodule in the right adnexa. The patient is status post right salpingo-oophorectomy. The left ovary is visualized. The left ovary measures 3 cm x 2 cm x 1.6 cm. There is no left ovarian cyst or ovarian mass. There is no visualized left adnexal mass or complex lesion. There is normal arterial and normal venous vascularity. There is no fluid in the cul-de-sac. The pre void volume of the bladder was 44 ml. US/Transvaginal Non- IMPRESSION: The IUD appears to be in the lower uterine segment. Status post right salpingo-oophorectomy. 3.5 cm x 3.3 cm x 4.6 cm solid nodule in the right adnexa with increased vascularity. Electronically Signed: Osmany Hurst MD at 13:13 EST , Service support ,
--- NOTE | 2021-11-02 11:21 | US_ITS ---
STUDY: ULTRASOUND OF THE FEMALE PELVIS - COMPLETE REASON FOR EXAM: Female, 26 years old. Pelvic pain LMP: Unsure. TECHNIQUE: Transabdominal and Transvaginal TECHNICAL QUALITY: Adequate. COMPARISON: None. FINDINGS: The uterus is anteverted and is in a midline position. The uterus measures 6.9 cm x 4.5 cm x 3.6 cm. Normal uterine cervix. The endometrium measures 5.1 mm in thickness, and is hyperechoic. There is no demonstrated endometrial mass. There is no demonstrated myometrial mass. I.U.D. - The patient does have an I.U.D.. There appears to be abnormal placement of the IUD in the lower uterine segments. There is a 3.5 cm x 3.3 cm x 4.6 cm hypoechoic solid nodule in the right adnexa. The patient is status post right salpingo-oophorectomy. The left ovary is visualized. The left ovary measures 3 cm x 2 cm x 1.6 cm. There is no left ovarian cyst or ovarian mass. There is no visualized left adnexal mass or complex lesion. There is normal arterial and normal venous vascularity. There is no fluid in the cul-de-sac. The pre void volume of the bladder was 44 ml. US/Pelvic (Non ) IMPRESSION: The IUD appears to be in the lower uterine segment. Status post right salpingo-oophorectomy. 3.5 cm x 3.3 cm x 4.6 cm solid nodule in the right adnexa with increased vascularity. Electronically Signed: Osmany Hurst MD at 13:13 EST , Service support ,
== END 2021-11-02 23:59 | disposition short-term general hospital (02) ==
LOC: US 11:19
PROVIDERS: Referring Provider Obstetrics & Gynecology; Visit Provider Obstetrics & Gynecology
DX: R19.09 Other intra-abdominal and pelvic swelling, mass and lump (principal); R10.2 Pelvic and perineal pain; Z97.5 Presence of (intrauterine) contraceptive device
CPT/HCPCS: 76830; 76856

== ENCOUNTER 2021-11-17 15:00 | Outpatient (CLI) | payer OTHER, SELFPAY | END 2021-11-17 23:59 | disposition short-term general hospital (02) | LOC: LABSPEC 11-19 11:17 | PROVIDERS: Visit Provider Obstetrics & Gynecology | DX: N89.8 Other specified noninflammatory disorders of vagina (principal) | CPT/HCPCS: 87070; 87205 ==

== ENCOUNTER 2022-01-20 17:09 | Outpatient (CLI) | payer OTHER, SELFPAY | END 2022-01-20 23:59 | disposition home or self-care (01) | PROVIDERS: Visit Provider Obstetrics & Gynecology | DX: R10.2 Pelvic and perineal pain (principal) | CPT/HCPCS: 87070; 87205 ==

== ENCOUNTER 2022-02-02 12:36 | Outpatient (CLI) | payer OTHER, SELFPAY ==
--- NOTE | 2022-02-02 12:37 | US_ITS ---
STUDY: ULTRASOUND OF THE FEMALE PELVIS - COMPLETE REASON FOR EXAM: Female, 26 years old. 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 TECHNIQUE: Transabdominal and Transvaginal TECHNICAL QUALITY: Adequate. COMPARISON: Comparison is made with prior study dated 11/02/2021. FINDINGS: The uterus is anteverted and is in a midline position. The uterus measures 9.8 cm x 5.4 cm x 3.2 cm. Normal uterine cervix. The endometrium measures 7 mm in thickness, and is hyperechoic. There is no demonstrated endometrial mass. There is no demonstrated myometrial mass. I.U.D. - The patient does not have an I.U.D. The patient is status post right salpingo-oophorectomy. The left ovary is visualized. The left ovary measures 4.4 cm x 2.1 cm x 2.2 cm. There is no left ovarian cyst or ovarian mass. There is no visualized left adnexal mass or complex lesion. There is normal arterial and normal venous vascularity. There is no fluid in the cul-de-sac. The pre void volume of the bladder was 447 ml. US/Pelvic (Non ) IMPRESSION: Status post right salpingooophorectomy. Electronically Signed: Osmany Hurst MD at 14:53 EDT ,
--- NOTE | 2022-02-02 12:37 | US_ITS ---
STUDY: ULTRASOUND OF THE FEMALE PELVIS - COMPLETE REASON FOR EXAM: Female, 26 years old. 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 TECHNIQUE: Transabdominal and Transvaginal TECHNICAL QUALITY: Adequate. COMPARISON: Comparison is made with prior study dated 11/02/2021. FINDINGS: The uterus is anteverted and is in a midline position. The uterus measures 9.8 cm x 5.4 cm x 3.2 cm. Normal uterine cervix. The endometrium measures 7 mm in thickness, and is hyperechoic. There is no demonstrated endometrial mass. There is no demonstrated myometrial mass. I.U.D. - The patient does not have an I.U.D. The patient is status post right salpingo-oophorectomy. The left ovary is visualized. The left ovary measures 4.4 cm x 2.1 cm x 2.2 cm. There is no left ovarian cyst or ovarian mass. There is no visualized left adnexal mass or complex lesion. There is normal arterial and normal venous vascularity. There is no fluid in the cul-de-sac. The pre void volume of the bladder was 447 ml. US/Transvaginal Non- IMPRESSION: Status post right salpingooophorectomy. Electronically Signed: Osmany Hurst MD at 14:53 EDT ,
== END 2022-02-02 23:59 | disposition home or self-care (01) ==
LOC: OPUS 12:36
PROVIDERS: Visit Provider Obstetrics & Gynecology
DX: R10.2 Pelvic and perineal pain (principal)
CPT/HCPCS: 76830; 76856

== ENCOUNTER → 2022-05-10 | Outpatient (CLI) | payer OTHER, SELFPAY | END | disposition home or self-care (01) | LOC: LABSPEC 05-12 14:43 | PROVIDERS: Visit Provider Nurse Practitioner Women's Health | DX: R82.90 Unspecified abnormal findings in urine (principal); N76.0 Acute vaginitis | CPT/HCPCS: 87070; 87086; 87088; 87186; 87205 ==

== ENCOUNTER → 2022-07-02 | Outpatient (CLI) | payer OTHER, SELFPAY ==
[2022-07-02 15:51] LABS: hCG Titer Quant., Serum 9049 mIU/mL (1-3)
[2022-07-05 22:06] LABS: Chlamydia By Nucleic Acid AMP Negative (Negative)
[2022-07-06 11:12] LABS: Gonococcus By Nucleic Acid AMP Negative (Negative)
== END | disposition home or self-care (01) ==
PROVIDERS: Obstetrics & Gynecology; Visit Provider Obstetrics & Gynecology
DX: O09.90 Supervision of high risk pregnancy, unspecified, unspecified trimester (principal); Z3A.00 Weeks of gestation of pregnancy not specified
CPT/HCPCS: 36415; 84702; 87077; 87086; 87088; 87186; 87491; 87591

== ENCOUNTER → 2022-07-04 | Outpatient (CLI) | payer OTHER, SELFPAY ==
[2022-07-04 17:40] LABS: hCG Titer Quant., Serum 14442 mIU/mL (1-3)
== END | disposition home or self-care (01) ==
LOC: LABSPEC 16:32
PROVIDERS: Visit Provider Obstetrics & Gynecology
DX: O20.0 Threatened abortion (principal); Z3A.00 Weeks of gestation of pregnancy not specified
CPT/HCPCS: 36415; 84702

== ENCOUNTER → 2022-07-12 | Outpatient (CLI) | payer OTHER, SELFPAY ==
--- NOTE | 2022-07-12 19:10 | US_ITS ---
STUDY: FIRST TRIMESTER OBSTETRICAL ULTRASOUND REASON FOR EXAM: Female, 27 years old. Dating. Status post right oophorectomy. History of prior C-sections. LMP: 04/27/2022 TECHNIQUE: Transvaginal TECHNICAL QUALITY: Adequate. PRIOR ULTRASOUND: None. FINDINGS: There is visualization of a single gestational sac in a normal intrauterine position. The mean sac diameter (MSD) measures 2.36 cm, indicating an estimated gestational age (EGA) of 7 weeks, 3 days. The gestational sac shape is within normal limits. There is a visualized yolk sac. The yolk sac measures 0.29 cm. The placenta is non-visualized. There is visualization of a live embryo. The crown-rump length (CRL) measures 0.86 cm, indicating an estimated gestational age (EGA) of 7 weeks, 0 days. There is demonstrated cardiac activity with a heart rate of 135 bpm. The estimated gestation age (EGA) by LMP is 10 weeks, 6 days. The estimated date of delivery (ROBERTH) by LMP is 02/01/2023. The estimated gestation age (EGA) by US is 7 weeks, 2 days. The estimated date of delivery (ROBERTH) by US is 02/26/2023. The uterus measures 9.7 x 6.9 x 5.2 cm.. There is a 1.7 x 0.8 x 0.3 cm anechoic structure adjacent to the gestational sac. It represent a subchorionic hemorrhage. There is no demonstrated uterine fibroid. The cervix is closed. Status post right oophorectomy. There is no visualized right adnexal mass or complex lesion. The left ovary measures 3.9 x 2.8 x 2.6 cm. There is a 2.3 x 2.0 x 1.2 cm corpus luteum cyst. There is no visualized left adnexal mass or complex lesion. There is no fluid in the cul de sac. US/Transvaginal w/Preg US IMPRESSION: 1. Live single intrauterine at 7 weeks, 2 days. ROBERTH is 02/26/2023. 2. heart rate of 135 bpm. 3. Subchorionic hemorrhage. 4. Left ovarian corpus luteum cyst. The right ovary is surgically absent. Electronically Signed: Malik Cochran DO at 22:13 EDT ,
== END | disposition home or self-care (01) ==
LOC: US 19:08
PROVIDERS: Referring Provider Obstetrics & Gynecology; Visit Provider Obstetrics & Gynecology
DX: O20.8 Other hemorrhage in early pregnancy (principal); O34.219 Maternal care for unspecified type scar from previous cesarean delivery; Z90.721 Acquired absence of ovaries, unilateral; Z3A.01 Less than 8 weeks gestation of pregnancy; N83.12 Corpus luteum cyst of left ovary
CPT/HCPCS: 76817

== ENCOUNTER → 2022-07-26 | Outpatient (CLI) | payer OTHER, SELFPAY ==
[2022-07-26 14:36] VITALS: BP 110/66; PULSE 84; RESP 16; TEMP 36.6; O2SAT 100; BMI 32.8
[2022-07-26] MEDS: 0.9% NaCl Peripheral Flush Adult/Peds IV (14:57)
[2022-07-26] MEDS: Dextrose 5%-Lactated Ringers 1,000 ML 999 ML IV (14:57)
[2022-07-26] MEDS: Ondansetron 4 MG/2 ML Vial IV (14:58)
[2022-07-26 15:37] LABS: ALB/GLOB Ratio 0.9 RATIO (0.9-2.4); AST(SGOT) 16 U/L (15-37); Alanine Aminotransfer ALT/SGPT 28 U/L (13-56); Albumin, Serum 3.6 g/dL (3.2-5.0); Alkaline Phosphatase 55 U/L (45-117); Anion Gap 7 (5-15); BUN 10 mg/dL (7-18); BUN/Creat Ratio 14.2 RATIO (10-20); Chloride 105 mmol/L (98-107); EST Glomerular Filtration Rate 105 mL/min (>60); Est Glom Filt Rate - Afr Amer 127 mL/min (>60); Estimated Creatinine Clearance 89.48 ml/min; Globulin 3.9 g/dL (2.2-4.2); Glucose 82 mg/dL (74-106); Potassium 3.6 mmol/L (3.5-5.1); Protein, Total 7.5 g/dL (6.4-8.2); Sodium Level 136 mmol/L (136-145)
[2022-07-26 16:10] VITALS: BP 99/60; PULSE 85; RESP 16
== END | disposition home or self-care (01) ==
PROVIDERS: Referring Provider Registered Nurse; Visit Provider Registered Nurse
DX: O23.40 Unspecified infection of urinary tract in pregnancy, unspecified trimester (principal); O26.899 Other specified pregnancy related conditions, unspecified trimester; E86.0 Dehydration
CPT/HCPCS: 96361; 96374; 80053; 87077; 87086; 87088; 87186; A4216; J2405

== ENCOUNTER → 2022-07-28 | Outpatient (CLI) | payer OTHER, SELFPAY ==
[2022-07-28 10:38] VITALS: BP 103/75; PULSE 85; RESP 16; TEMP 36.4; O2SAT 100; BMI 32.8
[2022-07-28] MEDS: 0.9% NaCl Peripheral Flush Adult/Peds IV (11:02)
[2022-07-28] MEDS: Ondansetron 4 MG/2 ML Vial IV (11:02)
[2022-07-28] MEDS: Dextrose 5%-Lactated Ringers 1,000 ML 999 ML IV (11:02)
[2022-07-28 12:21] VITALS: BP 96/55; PULSE 84; RESP 16; O2SAT 100
== END | disposition home or self-care (01) ==
PROVIDERS: Referring Provider Obstetrics & Gynecology; Visit Provider Obstetrics & Gynecology
DX: N89.8 Other specified noninflammatory disorders of vagina (principal); E86.0 Dehydration
CPT/HCPCS: 96361; 96374; 87070; 87205; A4216; J2405

== ENCOUNTER → 2022-08-27 | Outpatient (CLI) | payer OTHER, SELFPAY ==
[2022-08-27 16:09] LABS: NATERA MAILED SPECIMEN
[2022-08-27 16:13] LABS: Ferritin 60 ng/mL (8-252); Iron Binding Capacity,Total 304 ug/dL (250-450)
== END | disposition home or self-care (01) ==
PROVIDERS: Visit Provider Obstetrics & Gynecology
DX: O23.40 Unspecified infection of urinary tract in pregnancy, unspecified trimester (principal); Z34.82 Encounter for supervision of other normal pregnancy, second trimester
CPT/HCPCS: 36415; 82728; 83550; 87086; 87088

== ENCOUNTER → 2022-09-21 | Outpatient (CLI) | payer OTHER, SELFPAY ==
[2022-09-21 12:25] LABS: Absolute Lymphocyte Count 0.89 X10^3/uL (0.83-4.51); Basophil# 0.02 X10^3/uL; Basophil% 0.3 % (0-1); Eosinophil# 0.05 X10^3/uL; Eosinophils% 0.8 % (0-5); Hematocrit 38.7 % (37-47); Hemoglobin 13.2 g/dL (12.0-15.0); Lymphocyte # 0.89 X10^3/ul (0.83-4.51); Lymphocyte % 14.3 % (19-41); Mean Corp Hgb Conc 34.1 g/dL (32-36); Mean Corpuscular Hgb 30.1 pg (27.0-32.0); Mean Corpuscular Volume 88.2 fL (81-99); Mean Platelet Vol. 9.3 fl (6.2-12.0); Monocyte# 0.22 X10^3/uL; Monocyte% 3.5 % (0-10); NRBC Flagged by Analyzer 0 % (0-5); Neutrophil # 5.03 X10^3/uL (2.7-7.7); Neutrophil % 80.8 % (47-70); Platelet Count 200 K/mm3 (150-450); RBC Distribution Width CV 12.4 % (11.6-14.6); RBC Distribution Width SD 39.8 fl (35.1-43.9); Red Blood Count 4.39 M/mm3 (4.2-5.4); White Blood Count 6.2 K/mm3 (4.4-11.0)
[2022-09-21 13:26] LABS: Glucose Challenge Gest 1H 50g 118 mg/dL (70-140)
[2022-09-21 13:52] LABS: HIV - WCH Non-Reactive (Nonreactive); Hepatitis B Surface Antigen Non-Reactive (Nonreactive); Hepatitis C Antibody Non-Reactive (Nonreactive); Rubella IgG Reactive (Nonreactive); Syphilis Antibodies Non-reactive
[2022-09-21 17:59] LABS: Amphetamine Urine VISTA NEGATIVE (<1000 ng/mL); Barbiturate Urine VISTA NEGATIVE (< 200 ng/mL); Benzodiazepine Urine VISTA NEGATIVE (< 200 ng/mL); Cocaine Urine VISTA NEGATIVE (< 300 ng/mL); Ecstacy Urine VISTA NEGATIVE (< 500 ng/mL); Methadone Urine VISTA NEGATIVE (< 300 ng/mL); PCP Urine VISTA NEGATIVE (< 25 ng/mL); THC Urine VISTA NEGATIVE (< 50 ng/mL); Vista UDS pH Range 7
== END | disposition home or self-care (01) ==
PROVIDERS: Obstetrics & Gynecology; Visit Provider Nurse Practitioner Women's Health
DX: Z34.90 Encounter for supervision of normal pregnancy, unspecified, unspecified trimester (principal)
CPT/HCPCS: 36415; 80307; 82950; 85025; 86703; 86762; 86780; 86803; 86850; 86900; 86901; 87340

== ENCOUNTER → 2022-10-20 | Outpatient (CLI) | payer OTHER, SELFPAY ==
--- NOTE | 2022-10-20 14:00 | EKG12_ITS ---
Test Reason : ARRYTHMIA Blood Pressure : / mmHG Vent. Rate : 099 BPM Atrial Rate : 099 BPM P-R Int : 114 ms QRS Dur : 068 ms QT Int : 340 ms P-R-T Axes : 051 073 043 degrees QTc Int : 436 ms Normal sinus rhythm Normal ECG Confirmed by ALFA GRIMES, JEFFERY ([id number]), material expeditor DOROTA MARINA ([id number]) on 10/21/2022 8:10:34 AM Referred By: Lynn Aguilar Confirmed By:JEFFEYR GRIMM MD
== END | disposition home or self-care (01) ==
LOC: PSN 09:48
PROVIDERS: Referring Provider Nurse Practitioner Women's Health; Visit Provider Nurse Practitioner Women's Health
DX: R00.2 Palpitations (principal); Z82.49 Family history of ischemic heart disease and other diseases of the circulatory system
CPT/HCPCS: 93005

== ENCOUNTER → 2022-11-29 | Outpatient (CLI) | payer OTHER, SELFPAY ==
[2022-11-29 14:09] LABS: Absolute Lymphocyte Count 1.43 X10^3/uL (0.83-4.51); Absolute Neutrophil Count 7.8 X10^3/uL (2.0-7.7); Basophil# 0.03 X10^3/uL; Basophil% 0.3 % (0-1); Eosinophil# 0.08 X10^3/uL; Eosinophils% 0.8 % (0-5); Hematocrit 33.9 % (37-47); Hemoglobin 11.4 g/dL (12.0-15.0); Lymphocyte # 1.43 X10^3/ul (0.83-4.51); Lymphocyte % 14.6 % (19-41); Mean Corp Hgb Conc 33.6 g/dL (32-36); Mean Corpuscular Hgb 30.2 pg (27.0-32.0); Mean Corpuscular Volume 89.7 fL (81-99); Mean Platelet Vol. 9.1 fl (6.2-12.0); Monocyte# 0.37 X10^3/uL; Monocyte% 3.8 % (0-10); NRBC Flagged by Analyzer 0 % (0-5); Neutrophil # 7.77 X10^3/uL (2.7-7.7); Neutrophil % 79.6 % (47-70); Platelet Count 198 K/mm3 (150-450); RBC Distribution Width CV 13.4 % (11.6-14.6); RBC Distribution Width SD 44.1 fl (35.1-43.9); Red Blood Count 3.78 M/mm3 (4.2-5.4); White Blood Count 9.8 K/mm3 (4.4-11.0)
[2022-11-29 14:34] LABS: Glucose Challenge Gest 1H 50g 112 mg/dL (70-140)
[2022-11-29 15:07] LABS: HIV - WCH Non-Reactive (Nonreactive); Syphilis Antibodies Non-reactive
== END | disposition home or self-care (01) ==
LOC: LAB 13:29
PROVIDERS: Referring Provider Obstetrics & Gynecology; Visit Provider Obstetrics & Gynecology
DX: Z13.1 Encounter for screening for diabetes mellitus (principal); O09.90 Supervision of high risk pregnancy, unspecified, unspecified trimester; N91.2 Amenorrhea, unspecified; Z3A.00 Weeks of gestation of pregnancy not specified
CPT/HCPCS: 82950; 85025; 86703; 86780

== ENCOUNTER → 2022-12-06 | Outpatient (CLI) | payer OTHER, SELFPAY ==
--- NOTE | 2022-12-06 09:55 | ECHOD_ITS ---
Reason For Study: PALPITATIONS Procedure This was a 2D Doppler, Color Flow transthoracic echocardiogram. The study was technically difficult. Definity deferred due to . Exam performed in department. Left Ventricle Normal LV size. Left ventricular systolic function is normal. The estimated ejection fraction is 65 %. No regional wall motion abnormalities noted. Right Ventricle Normal RV size. Normal systolic function. Atria Normal left atrium. Normal right atrium. Mitral Valve Normal mitral valve. Tricuspid Valve Normal tricuspid valve. Aortic Valve Normal aortic valve. Pulmonic Valve Normal pulmonic valve. Great Vessels Normal aortic root. The pulmonary artery is normal size. Normal inferior vena cava. Pericardium/Pleural No pericardial effusion. MMode/2D Measurements & Calculations LVIDd: 3.9 cm IVSd: 0.89 cm Ao root diam: 2.6 cm LVIDs: 2.6 cm LVPWd: 0.93 cm FS: 34.4 % LAV(MOD-sp4): 31.7 ml LA A4 area: 13.5 cm2 LA dimension(2D): 3.2 cm RA A4 area: 8.3 cm2 Time Measurements MV dec time: 0.15 sec Doppler Measurements & Calculations MV E max urban: 79.1 cm/sec Lat Peak E' Urban: 14.8 cm/sec MV V2 max: 96.2 cm/sec MV A max urban: 85.1 cm/sec E/E' lat: 5.3 MV max P.7 mmHg MV E/A: 0.93 MV V2 mean: 70.5 cm/sec MV mean P.2 mmHg MV V2 VTI: 23.0 cm MV dec slope: 518.9 cm/sec2 Ao V2 max: 157.5 cm/sec LV V1 max: 129.0 cm/sec Ao max P.9 mmHg LV V1 max P.7 mmHg Ao V2 mean: 106.4 cm/sec LV V1 mean P.7 mmHg Ao mean P.3 mmHg LV V1 mean: 90.3 cm/sec Ao V2 VTI: 27.6 cm LV V1 VTI: 21.0 cm AV (velocity ratio): 0.76 PA V2 max: 108.8 cm/sec PA V2 mean: 75.9 cm/sec ECHO/Echo Complete Interpretation Summary Normal LV size. Left ventricular systolic function is normal. The estimated ejection fraction is 65 %. Structurally normal valves. Ordering Physician: Katelynn Driscoll Referring Physician: OUT OF TOWN Performed By: Radha Ac RCS
== END | disposition home or self-care (01) ==
LOC: CVS 09:53
PROVIDERS: Visit Provider Obstetrics & Gynecology
DX: R00.0 Tachycardia, unspecified (principal); I27.20 Pulmonary hypertension, unspecified
CPT/HCPCS: 93306

== ENCOUNTER → 2022-12-31 | Outpatient (CLI) | payer OTHER, SELFPAY | END | disposition home or self-care (01) | LOC: PSN 12:42 | PROVIDERS: Referring Provider Internal Medicine Cardiovascular Disease; Visit Provider Internal Medicine Cardiovascular Disease | DX: Z00.00 Encounter for general adult medical examination without abnormal findings (principal) | CPT/HCPCS: 93225; 93226 ==

== ENCOUNTER → 2023-01-25 | Outpatient (CLI) | payer OTHER, SELFPAY ==
--- NOTE | 2023-01-25 09:58 | US_ITS ---
INDICATION: growth scan COMPARISON: Pelvic ultrasound 07/12/2022. FINDINGS: 58 grayscale ultrasound images demonstrate single live intrauterine in cephalic presentation measuring at 36 weeks +1 day average ultrasound age. Estimated weight, 3008g, 82nd percentile. heart rate, 147 bpm. Adequate amniotic fluid volume with multiple large pockets visualize, KASSI 18 cm, deepest vertical pocket 8 cm. Anterior placenta is unremarkable for gestational age, inferior margin well clear of the internal cervical os. Fluid-filled stomach. Uterine myometrium is unremarkable. Uterine cervix is long and closed measuring at least 4 cm in length. Bilateral ovaries are not visualized. No significant free fluid. US/OB Limited With Biometrics IMPRESSION: Single live intrauterine in cephalic presentation measuring at 36 weeks +1 day average ultrasound age. Estimated weight, 3008g., 82nd percentile Electronically Signed: Otis Farley MD at 22:40 EDT ,
== END | disposition home or self-care (01) ==
LOC: US 09:58
PROVIDERS: Visit Provider Obstetrics & Gynecology
DX: O99.210 Obesity complicating pregnancy, unspecified trimester (principal); Z3A.00 Weeks of gestation of pregnancy not specified
CPT/HCPCS: 76816

== ENCOUNTER → 2023-01-31 | Outpatient (CLI) | payer OTHER, SELFPAY | END | disposition home or self-care (01) | LOC: LABSPEC 11:52 | PROVIDERS: Referring Provider Obstetrics & Gynecology; Visit Provider Obstetrics & Gynecology | DX: O09.90 Supervision of high risk pregnancy, unspecified, unspecified trimester (principal); Z3A.00 Weeks of gestation of pregnancy not specified | CPT/HCPCS: 87081 ==

== ENCOUNTER → 2023-02-09 | Outpatient (CLI) | payer OTHER, SELFPAY | END | disposition home or self-care (01) | LOC: LABSPEC 13:16 | PROVIDERS: Referring Provider Obstetrics & Gynecology; Visit Provider Obstetrics & Gynecology | DX: N89.8 Other specified noninflammatory disorders of vagina (principal) | CPT/HCPCS: 87070; 87205 ==

== ENCOUNTER 2023-02-14 05:15 | Inpatient (IN) | payer OTHER, SELFPAY ==
--- NOTE | 2023-02-13 16:03 | HP.PCM.OB_ITS ---
HPI - General HPI Narrative LISSETTE PUTNAM, is a 27 F who presents for RLTCS and BS Maternal Data Information ROBERTH Calculator Estimated Delivery Date Method Current WG Current Estimate 02/26/23 Ultrasound #2 38w 1d Other Estimates 02/01/23 LMP (Uncertain) 41w 5d 03/11/23 Ultrasound #1 36w 2d PFSH PFSH Medical History (Updated 02/13/23 @ 16:[address] Katelynn Driscoll MD) Anxiety and depression Complete Contraception management History of neutropenia Neutropenia, cyclic Subchorionic hematoma in first trimester Home Medications prenat.vits,ty,yzr-wvsw-wcyzs 1 tab PO DAILY 02/08/23 [History Last Taken Unknown] Allergy/AdvReac Type Severity Reaction Status Date / Time Cephalosporins Allergy Anaphylaxis Verified 02/09/23 10:50 Sulfa (Sulfonamide Allergy Anaphylaxis Verified 02/09/23 10:50 Antibiotics) Family History Grandmother Diabetes Cancer Hypertension Mother Heart disease Hypertension Grandmother Hypertension Surgical History (Updated 02/10/23 @ 09:50 by Domenica Phipps) H/O oophorectomy H/O skin graft History of delivery Social History adopted: No household members: spouse and children number of children: 2 current occupational status: employed current occupation: [employer] current occupational exposures/hazards: Yes pets and animals: Yes pets and animals: dog(s) history of recent travel: No sexually active: Yes Smoking Status: Former smoker how long ago did patient quit smokin years ago alcohol intake: never substance use type: does not use well-balanced diet: about half the time caffeine: No eating out: rarely or never during the past year weight has: remained stable what type of physical activity do you participate in: weight training and other details: boxing frequency: 3-4 times per week duration: 45-60 minutes/day fallon/mandaen: None seatbelt use: always do you feel safe at home: Yes 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 Date Name GA/Weeks Outcome Route Bth Weight Infant Gen Labor Lgth Anesthesia Del Locatn Provider FOB Unknown 2012 Carmelo 35 live - 6#13oz Male [facility] 07/16/20 Martell 39 live - full term 7lbs 12oz Male spinal [facility] GP Kev Delivery Date: Last Updated by: Katelynn Driscoll MD placental abruption Delivery Date: 07/16/20 Last Updated by: Scarlett Post no complications Visit Details Expected Delivery Route/Plan RLTCS Plans Covid status: [] Flu vaccine: given Tdap vaccine: [] Rhogam: na LARC form signed:obtained Problem list reviewed and updated with the most current plan of care details and appropriate orders placed. Relevant counseling for the gestational age provided. Continue routine care and follow up unless otherwise noted in visit notes/problem list details OB Flowsheet Initial Weight: Not Recorded Date -?-?-?-?-?-?-?-?-?-?-?-?- EGA Weight BP Urine Prot -?-?-?-?-?-?-?-?-?-?-?-?- Glucose FHR FuHt Pres Dilation -?-?-?-?-?-?-?-?-?-?-?-?- Effaced St Visit Note 07/02/22 -?-?-?-?-?-?-?-?-?-?-?-?- 5w 6d 179 lb 8 oz 113/75 -?-?-?-?-?-?-?-?-?-?-?-?- -?-?-?-?-?-?-?-?-?-?-?-?- JV- GS and yolk sac measuring 4weeks. small pole without heart tones. will collect serial quants and call with results. 07/26/22 -?-?-?-?-?-?-?-?-?-?-?-?- 9w 2d 174 lb 6 oz Negative -?-?--?-?-?-?-?-?-?-?-?-?- Negative 160 -?-?-?-?-?-?-?-?-?-?-?-?- LC- limited ultr asound with FHR. n/v up to 20 times per day unable to keep liquid down. to obtain IV hydration today, electrolyte panel. will trial promethazine. will wean down on wellbutrin to maximize nausea management.rto on tuesday07/28/22 -?-?-?-?-?-?-?-?-?-?-?-?- 9w 4d 174 lb 4 oz 98/68 Nega tive -?-?-?-?-?-?-?-?-?-?-?-?- Negative 175 -?-?-?-?-?-?-?-?-?-?-?-?- JV- pt still cece y nauseated. sending down for fluids and zofran and submitting request for zofran pump. phenergan po sent to pharmacy. CRL measuring appropriate for 9 weeks 6 days IUP. pt wants to do genetic screening. 08/27/22 -?-?-?-?-?-?-?-?-?--?-?-?- 13w 6d 174 lb 4 oz 97/63 Nega tive -?-?-?-?-?-?-?-?-?-?-?-?- Negative 159 -?-?-?-?-?-?-?-?-?-?-?-?- JV- no longer us ing zofran pump but nervous about hair falling out. tsh and iron studies ordered for restless legs 09/21/22 -?-?-?-?-?-?-?-?-?-?-?-?- 17w 3d 172 lb 2 oz 98/6 Nega tive -?-?-?-?--?-?-?-?-?-?-?-?- Negative 148 -?-?-?-?-?-?-?-?-?-?-?-?- MH-No VB. Kojo trin[place] movement. Flu vaccine today. MFM US sched. Some RL pain, constipation-start stool softener. PN labs today 10/20/22 -?-?-?-?-?-?-?-?-?-?-?-?- 21w 4d 177 lb 4 oz 114/70 Nega tive -?-?-?-?-?-?-?-?-?-?-?-?- Negative 142 -?-?-?--?-?-?-?-?-?-?-?-?- MH-No VB, lof. G ood FM. Noting tachycardia with and without adderall. Mother w SVT. EKG ordered. 11/19/22 -?-?-?-?-?-?-?-?-?-?-?-?- 25w 6d 186 lb 4 oz 107/73 Nega tive -?-?-?-?-?-?-?-?-?-?-?-?- Negative 143 -?-?-?-?-?-?-?-?-?-?-?-?- JV- still having migraines that at times are debilitating. will start sumatriptan but only use when severe, risks discussed. plan for 39 week rpt section. 11/29/22 -?-?-?-?-?-?-?-?-?-?-?-?- 27w 2d 192 lb 8 oz 121/77 Nega tive -?-?-?-?-?-?-?-?-?-?-?-?- Negative 140 27 -?-?-?-?-?-?-?-?-?-?-?-?- SM- seen overnig ht at [facility] for SOB and palpitations. having dizziness and lightheadedness. no vb lof good fm n oregular ctx 12/14/22 -?-?-?-?-?-?-?-?-?-?-?-?- 29w 3d 194 lb 118/72 Negative -?-?-?-?-?-?-?-?-?-?-?-?- Negative 153 30 -?-?-?-?-?-?-?-?-?-?-?-?- JV- pt saw cardi ology and will have holter monitor set up soon. overall normal exam. compression stockings encouraged. pt's scars on upper leg is pulling but not bleeding yet. plan for vertical skin incision rpt section. 03/10/23 -?-?-?-?-?-?-?-?-?-?-?-?- 31w 6d 198 lb 9 oz -?-?-?-?-?-?-?-?-?-?-?-?- 143 32 -?-?-?-?-?-?-?-?-?-?-?-?- LC- seeing cards today. [id number]. tunnel vision when [id number], no syncope. no ctx/lof/vb. good fm. 01/11/23 -?-?-?-?-?-?-?-?-?-?-?-?- 33w 3d 202 lb 96/64 Negative -?-?-?-?-?-?-?-?-?-?-?-?- Negative 140 34 -?-?-?-?-?-?-?-?-?-?-?-?- SM- no vb lof go od fm no regular ctx 01/25/23 -?-?-?-?-?-?-?-?-?-?-?-?- 35w 3d 208 lb 2 oz 108/78 Nega tive -?-?-?-?-?-?-?-?-?-?-?-?- Negative 140 36 -?-?-?-?-?-?-?-?-?-?-?-?- SM- no vb lof go od fm no regular ctx. still struggling with raise in HR. 01/31/23 -?-?-?-?-?-?-?-?-?-?-?-?- 36w 2d 211 lb 2 oz 109/74 Nega tive -?-?-?-?-?-?-?-?-?-?-?-?- Negative 140 37 0 -?-?-?-?-?-?-?-?-?-?-?-?- SM_ no vb lof go od fm no regular ctx 02/09/23 -?-?-?-?-?-?-?-?-?-?-?-?- 37w 4d 215 lb 4 oz 103/69 Nega tive -?-?-?-?-?-?-?-?-?-?-?-?- Negative 145 49 0 -?-?-?-?-?-?-?-?-?-?-?-?- JV- neelam today is 26.5, FL and AC consistent with 39 weeks, HC 37 weeks. skin adhesions are pulling and she states that if they rip she will need further skin grafts. She also has pain in the pulling areas. Discussed with L&D admins and will delivery at 38 weeks 02/14/23 -?-?-?-?-?-?-?-?-?-?-?-?- 38w 2d -?-?-?-?-?-?-?-?-?-?-?-?- -?-?-?-?-?-?-?-?-?-?-?-?- NST FHR Rate Baby A Baseline: 130 ROS Constitutional Constitutional: Reports systems reviewed and no addt'l complaints, except as documented Eyes Eyes: Denies change in vision ENT HEENT: Reports systems reviewed and no addt'l complaints, except as documented; Denies headache(s) Cardiovascular Cardiovascular: Reports systems reviewed and no addt'l complaints, except as documented; Denies chest pain or dyspnea Respiratory/Chest Respiratory/Chest: Reports systems reviewed and no addt'l complaints, except as documented Gastrointestinal Gastrointestinal: Reports systems reviewed and no addt'l complaints, except as documented; Denies abdominal pain Genitourinary Genitourinary: Reports systems reviewed and no addt'l complaints, except as documented, contractions Details: present (irregular) and movement Details: present; Denies dysuria or genital lesions Musculoskeletal Musculoskeletal: Reports systems reviewed and no addt'l complaints, except as documented Neurologic Neurologic: Reports systems reviewed and no addt'l complaints, except as documented Endocrine Endocrinology: Reports systems reviewed and no addt'l complaints, except as documented Physical Exam Const alert, oriented x3, no apparent distress and healthy appearing HEENT normocephalic and moist oral mucous membranes Head and Scalp: atraumatic Neck full ROM, no lymphadenopathy, supple and thyroid normal General: trachea midline Lymph Lymphatic: no lymphadenopathy noted Chest inspection of chest normal Resp normal respiratory effort Cardio regular rate GI normal to inspection, nondistended, normoactive bowel sounds, soft to palpation and non-tender Inspection: gravid external exam normal Manual OB Exam: estimated gestational size appropriate, presentation cephalic, dilated, effaced and station Extremity normal to inspection General Extremity: Negative for edema Skin no rashes or lesions noted Neuro no focal motor deficits and deep tendon reflexes 2+ bilaterally Motor Exam: strength 5/5 throughout and clonus absent Psych mental status grossly normal Labs Labs Labs: Blood Type O POSITIVE Antibody Screen NEGATIVE Hct 33.9 % (37-47) L Hgb 11.4 g/dL (12.0-15.0) L Obstetrics US Syphilis Total Ab Non-reactive Rubella IgG Antibody Reactive (Nonreactive) Hep Bs Antigen Non-Reactive (Nonreactive) Chlamydia DNA (PRATEEK) Negative (Negative) Neisseria gonorrhoeae DNA (PRATEEK) Negative (Negative) HIV 1&2 Antibody Non-Reactive (Nonreactive) Glucose 1 Hr 50 gm 112 mg/dL (70-140) Group B Strep DNA Negative (Negative) Rhogam given: No Miscellaneous Test Assessment & Plan (1) Sterilization: COMMENT: plan tube removal at delivery (2) depression: COMMENT: discussed starting celexa after delivery (3) Pulmonary hypertension: COMMENT: seen on ct scan. normal echo. (4) Tachycardia: COMMENT: Happens with and w/o adderall. Her mother w SVT. Denies other sx. EKG normal. Enc to stop adderall. See cardiology if persists. Reviewed S&S to go to ED (5) UTI in , antepartum: COMMENT: neg culture; 10/20 on macrobid for recurrent. Rpt culture next visit (6) Obesity affecting : COMMENT: healthy weight gain (7) Supervision of high risk , antepartum: COMMENT: PRR , ROBERTH 02/01/23,girl Zurijuan miguel Martell García Spouse Kev (8) : QUALIFIERS: Weeks of gestation: 37 weeks Qualified Code(s): Z3A.37 - 37 weeks gestation of COMMENT: GBS Negative, NIPT low risk, discussed genetic testing. nl anatomy (9) History of recurrent miscarriages: COMMENT: 2 miscarriages 2018 @ or before 6 weeks, 2020 @ or before 6 weeks (10) History of delivery: COMMENT: 2012 placental abruption, 2019 planned rpt plan for salpingectomy , scheduled for 02/14 @ 7:10 with SM (11) Asthma: COMMENT: last flare up was when had Covid (12) Hx of depression, currently : (13) Attention deficit disorder: COMMENT: Adderall as needed/just when goes to work and Vyvanse/not taking (14) Anxiety and depression: COMMENT: stopped wellbutrin, stopped vyvanse; vistaril started. (15) Scar tissue: COMMENT: recommended early delivery, plan 38 weeks due to disruption of skin grafts on abdomen and legs PLAN: Plan After discussing the patient's diagnosis and treatment plan options, patient wis hes to proceed with surgical management. I have discussed with the patient the risks, benefits, and alternatives of the procedure which include but are not limited to risks of anesthesia, bleeding, infection, possible damage to bowel, bladder, or surrounding vasculature which could lead to additional surgery to evaluate any complications. Patient agrees to procedure and wishes to proceed. ACOG/uptodate references given for additional information regarding procedure.
[2023-02-14] VITALS (19 sets, daily range): BP systolic 85–109; BP diastolic 36–75; PULSE 81–104; RESP 14–18; TEMP 36.2–37.2; O2SAT 96–100; BMI 38.2
[2023-02-14] MEDS: Lactated Ringers 1,000 ML 999 ML IV (05:45)
[2023-02-14 06:05] LABS: Absolute Neutrophil Count 6.1 X10^3/uL (2.0-7.7); Basophil# 0.03 X10^3/uL; Basophil% 0.3 % (0-1); Eosinophil# 0.07 X10^3/uL; Eosinophils% 0.8 % (0-5); Hematocrit 35.2 % (37-47); Hemoglobin 11.8 g/dL (12.0-15.0); Lymphocyte % 22.5 % (19-41); Mean Corp Hgb Conc 33.5 g/dL (32-36); Mean Corpuscular Hgb 30.3 pg (27.0-32.0); Mean Corpuscular Volume 90.3 fL (81-99); Mean Platelet Vol. 9.9 fl (6.2-12.0); Monocyte# 0.59 X10^3/uL; Monocyte% 6.6 % (0-10); NRBC Flagged by Analyzer 0 % (0-5); Neutrophil # 6.14 X10^3/uL (2.7-7.7); Platelet Count 197 K/mm3 (150-450); RBC Distribution Width CV 13.2 % (11.6-14.6); White Blood Count 8.9 K/mm3 (4.4-11.0)
[2023-02-14] MEDS: Acetaminophen 500 MG Tablet 1000 MG PO ×3 (06:29→18:32)
[2023-02-14] MEDS: Lactated Ringers 1,000 ML 150 ML IV (07:00)
[2023-02-14] MEDS: Sodium Citrate/Citric Acid 30 ML UDC PO (07:00)
--- NOTE | 2023-02-14 07:12 | EX.PCM.OBRPT ---
Assessment & Plan (1) History of delivery: COMMENT: 2013 placental abruption, 2020 planned rpt plan for salpingectomy , scheduled for 02/14 @ 7:10 with SM (2) Scar tissue: COMMENT: recommended early delivery, plan 38 weeks due to disruption of skin grafts on abdomen and legs (3) Sterilization: COMMENT: plan tube removal at delivery (4) depression: COMMENT: discussed starting celexa after delivery (5) Pulmonary hypertension: COMMENT: seen on ct scan. normal echo. (6) Tachycardia: COMMENT: Happens with and w/o adderall. Her mother w SVT. Denies other sx. EKG normal. Enc to stop adderall. See cardiology if persists. Reviewed S&S to go to ED (7) UTI in , antepartum: COMMENT: neg culture; 10/20 on macrobid for recurrent. Rpt culture next visit (8) Obesity affecting : COMMENT: healthy weight gain (9) Supervision of high risk , antepartum: COMMENT: PRR , ROBERTH 02/01/23,girl Cam Martell García Spouse Kev (10) : QUALIFIERS: Weeks of gestation: 37 weeks Qualified Code(s): Z3A.37 - 37 weeks gestation of COMMENT: GBS Negative, NIPT low risk, discussed genetic testing. nl anatomy (11) History of recurrent miscarriages: COMMENT: 2 miscarriages 2018 @ or before 6 weeks, 2020 @ or before 6 weeks (12) Asthma: COMMENT: last flare up was when had Covid (13) Hx of depression, currently : (14) Attention deficit disorder: COMMENT: Adderall as needed/just when goes to work and Vyvanse/not taking (15) Anxiety and depression: COMMENT: stopped wellbutrin, stopped vyvanse; vistaril started. (16) delivery delivered: COMMENT: RLTCS and BS SM 38 girl Cam Maternal Data Information ROBERTH Calculator Estimated Delivery Date Method Current WG Current Estimate 02/26/23 Ultrasound #2 38w 2d Other Estimates 02/01/23 LMP (Uncertain) 41w 6d 03/11/23 Ultrasound #1 36w 3d Final ROBERTH Source: LMP Details Operative Information Date of Procedure: 02/14/23 Pre-Operative Diagnosis: Previous Post-Operative Diagnosis: same Indications for : Repeat Elective Indications Narrative: Surgeon: Katelynn Driscoll MD Classification: Scheduled Procedure Type: low transverse (vertical skin incision with left salpingectomy) Type of Anesthesia: Spinal Special Medications: none Antibiotic Given: Clindamycin 600mg IV x1 and Gentamicin 1.5mg/kg IV x1 Drain: Watts to straight drain Fluids Replaced: crystalloid Findings Description of Procedure: Spinal anesthesia was placed without difficulty. Watts catheter was placed. The patient was placed in the dorsal supine position with leftward tilt. Patient was prepped and draped in the normal sterile fashion. vertical skin incision was made with the scalpel through previous incision and carried through to the underlying layer of fascia with the scalpel. Fascia was nicked in the midline and the incision extended laterally. The rectus bellies were dissected off superiorly and inferiorly with out complication both sharply and bluntly. The peritoneum was entered digitally. The incision was stretched and a low transverse uterine incision was made with the scalpel. The 's head was delivered atraumatically followed by the anterior and posterior shoulders without complication the rest of the delivered. The cord was clamped and cut and the was handed off to awaiting nurse. The placenta was delivered spontaneously immediately following and was noted to be intact and have a three-vessel cord. The uterus was exteriorized cleared of all clots and debris, and the incision was closed in a single layer closure using #1 Monocryl. The ovary and left fallopian tube were noted to be within normal limits. left tube was removed with the ligasure without complicaiton for sterilization The uterus was returned to the maternal abdomen and gutters were cleared of all clots and debris. The peritoneum was closed with 3-0 Monocryl in a running fashion. Gloves were changed prior to fascial closure. Fascia was closed with 0 PDS in a running fashion. Subcutaneous tissue was copiously irrigated and the skin was closed with 3-0 Monocryl in a subcuticular fashion. Mepilex dressing was applied without complication. Patient was taken to recovery in stable condition. Amniotic Membrane Rupture Type: Artificial Amniotic Fluid Description: Clear Placenta Disposition: [facility] Cord Vessel Description: 3 Vessels Delayed Cord Clamping: Yes Complications Risks of Surgery Discussed w/Patient: Bleeding, Infection, Need for Future C-Sections and Injury to surrounding structure(s) including bowel and bladder Vaginal Delivery Operative Information Date of Procedure: 02/14/23 Complication Complications: None Admit VTE Documentation VTE Present on Admission: No VTE Mechan Device Prophylaxis: SCD's Multi Select Codes Urinary/Genital Urinary/Genital CPT Codes: 02896 C/S+TL (removal of tube at time of c section) and 15651 Delivery [facility]
--- NOTE | 2023-02-14 07:16 | DCINST_ITS ---
Discharge Instructions Diet Discharge Diet: No restrictions Activity Discharge Activity: Return to Normal Activity, May Drive (when pain free and off narcotic pain meds), May Shower and May Take a Tub Bath (in 4 weeks) May resume sexual activity in: 6 weeks Weight Bearing Status: Full weight bearing Lifting Restrictions: under 30 lbs for 6 weeks Dressing / Incision Call your doctor if your incision/area has: Continuous Slow Oozing, Sudden Increased Bleeding, Increased Pain/ Swelling, Increased Redness, Foul Smelling Discharge and - Call your doctor if you observe: Fever of 101 or Higher, Using more than 1 pad per hour, Shortness of breath, Chest pain and Uncontrolled pain Suture Line Care: Avoid Pulling/Pushing and Avoid Pinching/Bending Change Dressing in: 1 week (leave open to air after removed) Remove Dressing in: 1 week (if present) Cleanse incision/area with: Soap & Water and Keep Dressing Clean & Dry Follow Up Care Please Follow Up With: Katelynn Driscoll MD When: Call to make an appointment with your doctor for a postop visit in 2 and 6 weeks. Test Results: Test results from this visit will be discussed in further detail at your follow- up appointment, if applicable. Discharge Plan Admission Admit Date/Time: 02/14/23 05:15 Attending Provider: Katelynn Driscoll Discharge Orders/Prescriptions Prescriptions: New oxycodone-acetaminophen [Percocet] 5-325 mg tablet 1 tab PO Q6H PRN (Reason: pain) 7 Days Qty: 20 0RF naproxen [naproxen] 500 mg tablet 500 mg PO BID PRN PRN (Reason: Pain) Qty: 30 1RF Continued prenat.vits,ty,inq-logi-lmipx Tablet 1 tab PO DAILY Vyvanse 40 mg Capsule 40 mg PO DAILY Vistaril 25 mg PO/SL DAILY PRN (Reason: ) Disposition Disposition (needs filled in before D/C Order can be placed): Home, Self Care
[2023-02-14] MEDS: Clindamycin 900 MG/50 ML BAG 75 MG IV (07:36)
[2023-02-14 08:17] LABS: Syphilis Antibodies Non-reactive
[2023-02-14] MEDS: Oxytocin 15 Units/NS 250ml 15 UNITS/250 ML IV.SOLN 83 UNITS IV (08:50)
--- NOTE | 2023-02-14 09:03 | FALS_PTH ---
PATIENT: LISSETTE PUTNAM LOC: [facility] U#:[id number] AGE/SX: 27/F ROOM: WP004 RE02/14/[address]: Dr. Katelynn Driscoll MD : 1995 BED: 1 DIS: 02/17/2023 SPEC #: [id number] RECD: 02/14/23 09:23 STATUS: LACY DIANE #: [id number] VISHAL: 02/14/23 09:[address]: Katelynn Driscoll DEPT: SURGICAL PATHOLOGY RECD BY: Kathy Woodard Tissues: Fallopian tube Procedures: Surgery Specimen Level IV HEADER OPERATION: Tubal ligation PRE-OP DIAGNOSIS: Sterilization TISSUE SUBMITTED: Fallopian tube left MICROSCOPIC DIAGNOSIS Left fallopian tube, salpingectomy: Complete cross-section of fallopian tube with benign paratubal cyst. AM:seamus 02/15/2023 MICROSCOPIC DESCRIPTION Slides are reviewed. GROSS DESCRIPTION Received in fixative is one container labeled with the patient's name and designated left fallopian tube. The specimen consists of a fallopian tube with an average length of 7.5 cm and has an average diameter of 0.8 cm. The fimbrial end contains a smooth, glistening cyst containing fluid and measuring 2.0 cm in greatest dimension. Regulatory Affairs Consultant sections are submitted in two cassettes as follows: 1??fallopian tube, 2 - paratubal cyst. / AM:seamus 02/14/2023 TC:3 CPT: 66554
[2023-02-14] MEDS: Ketorolac 30 MG/ML Syringe IV ×3 (09:05→20:33)
[2023-02-14 09:25] LABS: Pathology Specimen OB SEE PATHOLOGY REPORT
[2023-02-14] MEDS: Nalbuphine 10 MG/ML Ampul 5 MG IV ×8 (11:08→22:15)
[2023-02-14] MEDS: Lactated Ringers 1,000 ML 100 ML IV (12:45)
--- NOTE | 2023-02-14 13:28 | NURSING ---
1150 pts abd dsg saturated at the base and not sticking the to pts skin- dressing lifted up to look at incision and the steri strips were also soaked and not sticking- the incision with not approximated and was draining moderate amount of clear red drainage; Dr Driscoll called and asked to come down and assess the incision;
--- NOTE | 2023-02-14 13:31 | NURSING ---
1215 Dr Driscoll here to see pt; incision assessed; Dermabond applied to incision with new steri strips, new mepilex, and a pressure dsg. ABD binder on; Order received for no fundal checks, leave the pressure dsg on for 24 hours, and if the dressing needs changed to call Dr Driscoll to change it; Antibiotics will be ordered
[2023-02-14] MEDS: Clindamycin 600 MG/50 ML BAG 100 MG IV ×2 (14:35→20:33)
[2023-02-14] MEDS: 0.9% Saline Lock 10 ML Syringe IV ×4 (18:34→22:16)
[2023-02-14] MEDS: Enoxaparin 40 MG/0.4 ML Syringe SC (20:32)
[2023-02-15] MEDS: Acetaminophen 500 MG Tablet 1000 MG PO ×4 (00:10→18:19)
[2023-02-15 00:59] VITALS: BP 95/51; PULSE 79; RESP 16; TEMP 36.9; O2SAT 99
[2023-02-15] MEDS: oxyCODONE 5 MG Tablet PO ×4 (02:04→22:13)
--- NOTE | 2023-02-15 02:04 | PCM.PN.BLA ---
Progress Note incision checked due to pain- intact dry dermabond looks great with pressure dressing on top. continue mepilex and pressure dressing to take off tension.
[2023-02-15] MEDS: Ketorolac 30 MG/ML Syringe IV (03:37)
[2023-02-15] MEDS: 0.9% Saline Lock 10 ML Syringe IV ×2 (03:38→09:05)
[2023-02-15 03:43] VITALS: BP 101/61; PULSE 87; RESP 16; TEMP 36.9; O2SAT 99
--- NOTE | 2023-02-15 03:58 | NURSING ---
0200 Pt has been having abdominal pain at incision site, dressing looks clean and dry from what this RN can see. Tylenol did not relieve much pain. Dr Driscoll informed. Md at bedside to assess. See md report.
[2023-02-15] MEDS: Nalbuphine 10 MG/ML Ampul 5 MG IV ×4 (05:07→09:15)
[2023-02-15 05:30] LABS: Hemoglobin 9.8 g/dL (12.0-15.0); Mean Corp Hgb Conc 32.7 g/dL (32-36); Mean Corpuscular Hgb 30.3 pg (27.0-32.0); Mean Corpuscular Volume 92.9 fL (81-99); Mean Platelet Vol. 9.8 fl (6.2-12.0); Platelet Count 169 K/mm3 (150-450); RBC Distribution Width CV 13.4 % (11.6-14.6); RBC Distribution Width SD 45.5 fl (35.1-43.9); Red Blood Count 3.23 M/mm3 (4.2-5.4); White Blood Count 7.4 K/mm3 (4.4-11.0)
[2023-02-15 08:00] VITALS: BP 94/57; PULSE 88; RESP 16; TEMP 36.6; O2SAT 98
[2023-02-15] MEDS: Senna/Docusate Sodium 1 Tablet PO (08:22)
[2023-02-15] MEDS: Clindamycin HCl 150 MG Capsule 300 MG PO ×3 (08:22→22:13)
[2023-02-15] MEDS: Naproxen 500 MG Tablet PO ×2 (10:24→18:19)
[2023-02-15 12:00] VITALS: BP 100/61; PULSE 87; RESP 16; TEMP 36.6; O2SAT 100
--- NOTE | 2023-02-15 14:11 | NURSING ---
Approval rec'd from Dr. Ceja to remove pressure dressing. Dressing removed and silver mepilex noted to be clean and intact.
[2023-02-15 20:35] VITALS: BP 95/60; PULSE 91; RESP 16; TEMP 36.6; O2SAT 98
[2023-02-15] MEDS: Enoxaparin 40 MG/0.4 ML Syringe SC (20:39)
[2023-02-16] MEDS: Acetaminophen 500 MG Tablet 1000 MG PO ×4 (00:39→18:55)
[2023-02-16] MEDS: Naproxen 500 MG Tablet PO ×3 (02:55→18:55)
[2023-02-16 03:17] VITALS: BP 101/53; PULSE 81; RESP 16; TEMP 36.6
[2023-02-16] MEDS: Clindamycin HCl 150 MG Capsule 300 MG PO ×3 (07:42→21:46)
--- NOTE | 2023-02-16 07:58 | PCM.PN.OB ---
Subjective Subjective Patient doing well without complaints. Tolerating PO. Ambulating and voiding without difficulty. Feeding well. Denies chest pain, shortness of breath, calf pain/swelling, fevers, chills, lightheadedness.Does struggle with pain as tries to avoid medication:father with hx of addiction. Objective Data Objective Data Vital Signs: Vital Signs Temp Pulse Resp BP Pulse Ox O2 Del Method 97.9 F 81 16 101/53 L 98 Room Air 02/16/23 03:17 02/16/23 03:17 02/16/23 03:17 02/16/23 03:17 02/15/23 20:35 02/16/23 03:17 Oxygen Delivery Method Room Air Weight: 216 lb 0.848 oz Body Mass Index (BMI) 38.2 Intake & Output: Intake and Output for Last 24 Hours 02/14/23 02/15/23 02/16/23 23:59 23:59 23:59 Intake Total 3834.83 / 3834.83 Output Total 2250 / 2250 350 / 350 Balance 1584.83 / 1584.83 -350 / -350 Lab / Micro Data Result Diagrams: 02/15/23 05:20 Physical Exam Const alert and oriented x3 HEENT normocephalic Eyes PERRL Neck full ROM Resp normal respiratory effort GI soft to palpation GI Narrative: FF below U. Dressing dry and intact Palpation: tender other (appropriately) Assessment & Plan (1) delivery delivered: COMMENT: RLTCS and BS SM 36 girl Maelynn PLAN: Plan s/p LTCS PPD # 2 1. routine post care 2. breast feeding- support given 3. rh positive 4. rubella immune 5. Undecided if wants dc today-discussed pain management.
[2023-02-16] MEDS: oxyCODONE 5 MG Tablet PO ×4 (09:36→22:18)
[2023-02-16] MEDS: Senna/Docusate Sodium 1 Tablet PO (09:36)
[2023-02-16 09:41] VITALS: BP 116/65; PULSE 88; RESP 16; TEMP 36.8; O2SAT 98
--- NOTE | 2023-02-16 09:53 | NURSING ---
abdomen soft, nondistended.
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
[2023-02-16 14:40] VITALS: BP 106/60; PULSE 97; RESP 18; TEMP 36.5; O2SAT 100
[2023-02-16 20:00] VITALS: BP 100/60; PULSE 79; RESP 46; TEMP 37.1; O2SAT 98
[2023-02-16] MEDS: Enoxaparin 40 MG/0.4 ML Syringe SC (21:45)
[2023-02-17] VITALS: BP 91/60; PULSE 89; RESP 15; TEMP 36.6; O2SAT 98
[2023-02-17] MEDS: Acetaminophen 500 MG Tablet 1000 MG PO ×2 (01:18→08:26)
[2023-02-17] MEDS: Naproxen 500 MG Tablet PO (03:23)
--- NOTE | 2023-02-17 05:46 | NURSING ---
call to provider to report new drainage on dressing. drainage circled on dressing around 1999, when reassessed 399 this RN noted that the drainage has slightly shadowed the margins of the ambler. provider will assess dressing when on the unit to round this morning.
--- NOTE | 2023-02-17 06:50 | NURSING ---
provider call to unit to get a status update on pt dressing. dressing intact, drainage is past the margin of previous [place]. provider wants lidocaine, injection needle, 4-0 Monocryl, 3 piece sterile set, steri strips, and Dermabond on standby in the instance the incision may need repaired.
--- NOTE | 2023-02-17 07:25 | PN.OBGYN_ITS ---
Subjective Subjective Patient having increased pain over the lower part of incision and drainage seen. Incision still intact but edges starting to pull away with granulation tissue seen connecting them. No chest pain shortness of breath no redness around the incision Objective Data Objective Data Vital Signs: Vital Signs Temp Pulse Resp BP Pulse Ox O2 Del Method 98 F 89 15 91/60 98 Room Air 02/17/23 00:00 02/17/23 00:00 02/17/23 00:00 02/17/23 00:00 02/17/23 00:00 02/17/23 00:00 Oxygen Delivery Method Room Air Weight: 216 lb 0.848 oz Body Mass Index (BMI) 38.2 Intake & Output: Intake and Output for Last 24 Hours 02/15/23 02/16/23 02/17/23 23:59 23:59 23:59 Output Total 350 / 350 350 / 350 Balance -350 / -350 -350 / -350 Lab / Micro Data Result Diagrams: 02/15/23 05:20 ROS Constitutional Constitutional: Reports systems reviewed and no addt'l complaints, except as documented Cardiovascular Cardiovascular: Reports systems reviewed and no addt'l complaints, except as documented Respiratory/Chest Respiratory/Chest: Reports systems reviewed and no addt'l complaints, except as documented Gastrointestinal Gastrointestinal: Reports systems reviewed and no addt'l complaints, except as documented Physical Exam Const alert, oriented x3 and no apparent distress HEENT Head and Scalp: atraumatic Resp normal respiratory effort GI soft to palpation and non-tender Bimanual Exam - Vag & Uterus: uterus non-tender Uterus Palpation: uterus fundus firm (below Umbilicus) Skin Skin Narrative: incision: edges pulling apart with granulation tissue between. drainage serosanguinous present, no erythema of skin or induration. Assessment & Plan (1) Wound disruption: COMMENT: clindamycin prophylactic antibiotics being given, wound center consulted for wound vac (2) delivery delivered: COMMENT: RLTCS and BS SM 38 girl Maelynn (3) Anxiety and depression: COMMENT: stopped wellbutrin, stopped vyvanse; vistaril started. (4) Attention deficit disorder: COMMENT: Adderall as needed/just when goes to work and Vyvanse/not taking (5) Scar tissue: COMMENT: s/p early delivery, plan 38 weeks due to disruption of skin gr afts on abdomen and legs (6) Tachycardia: COMMENT: Happens with and w/o adderall. Her mother w SVT. Denies other sx. EKG normal. Enc to stop adderall. See cardiology if persists. Reviewed S&S to go to ED (7) Asthma: COMMENT: last flare up was when had Covid PLAN: Plan s/p LTCS PPD # 3 1. routine post care 2. breast feeding- support given 3. rh positive 4. rubella immune wound center consult
[2023-02-17 08:05] VITALS: BP 95/62; PULSE 86; RESP 16; TEMP 36.6; O2SAT 95
[2023-02-17] MEDS: Clindamycin HCl 150 MG Capsule 300 MG PO (08:27)
--- NOTE | 2023-02-17 09:02 | WOUNDNOTE ---
wound photo: abdomen
[2023-02-17] MEDS: Enoxaparin 40 MG/0.4 ML Syringe SC (09:38)
[2023-02-17] MEDS: oxyCODONE 5 MG Tablet PO (09:38)
--- NOTE | 2023-02-18 07:28 | DS.PCM_ITS ---
Providers Date of Admission: 02/14/23 Consultations 02/17/23 07:04 Consult: Onc/Wound/seater assembler Routine Comment: Reason For Visit: REPEAT Diagnosis Discharge Diagnosis (1) Wound disruption: Status: Acute Code(s): T81.30XA - Disruption of wound, unspecified, initial encounter (2) delivery delivered: Status: Acute Code(s): O82 - Encounter for delivery without indication (3) Anxiety and depression: Status: Acute Code(s): F41.9 - Anxiety disorder, unspecified; F32.9 - Major depressive disorder, single episode, unspecified (4) Attention deficit disorder: Status: Acute Code(s): F98.8 - Other specified behavioral and emotional disorders with onset usually occurring in childhood and adolescence (5) Scar tissue: Status: Acute Code(s): L90.5 - Scar conditions and fibrosis of skin (6) Tachycardia: Status: Acute Code(s): R00.0 - Tachycardia, unspecified (7) Asthma: Status: Acute Code(s): J45.909 - Unspecified asthma, uncomplicated Plan s/p LTCS PPD # 3 1. routine post care 2. breast feeding- support given 3. rh positive 4. rubella immune wound center consult Medications at Discharge Home Medications prenat.vits,ty,yuu-yqdv-rvkgp 1 tab PO DAILY 02/08/23 Vistaril 25 mg PO/SL DAILY PRN 02/14/23 clindamycin HCl 300 mg capsule 300 mg PO Q8H 7 days #21 caps 02/14/23 lisdexamfetamine 40 mg capsule (Vyvanse) 40 mg PO DAILY adhd 02/14/23 naproxen 500 mg tablet 500 mg PO BID PRN PRN Pain #30 tabs 02/14/23 oxycodone-acetaminophen 5 mg-325 mg tablet (Percocet) 1 tab PO Q6H PRN pain 7 days #20 tabs 02/14/23 Hospital Course Summary of Care Provided Hospital Course: patient presented for TCS and had an uncomplicated delivery. Postop day 0 she had a disruption of the wound closure and it was closed with dermabond but on pod 3 there was concern for wound opening and therefore a wound vac was placed. she was given clindamycin proactively to reduce risk of infection. Postoperatively patient had return of bowel and bladder function and was ambulating well, tolerating adequate p.o., and was stable for discharge to home on postop day #3. Discharge medications naproxen clindamycin, and Percocet. Follow-up in office in 1 weeks for incision check in 6 weeks for visit. Routine post section diet and activity instructions. Weight / BMI Weight Weight: 216 lb 0.848 oz Body Mass Index (BMI) 38.2 ABG / Lab / Microbiology Data Result Diagrams: 02/15/23 05:20 D/C Instructions Discharge Diet: No restrictions Discharge Activity: May Not Drive (for 2 weeks or while taking narcotic pain medications.), May Shower and May Take a Tub Bath (in 7 days) May shower in (days): 0 May resume sexual activity in: 6 weeks Weight Bearing Status: Full weight bearing Call your doctor if your incision/area has: Continuous Slow Oozing, Sudden Increased Bleeding, Increased Pain/ Swelling, Increased Redness, Foul Smelling Discharge and - Call your doctor if you observe: Fever of 101 or Higher, Using more than 1 pad per hour, Shortness of breath, Chest pain and Uncontrolled pain Suture Line Care: Avoid Pulling/Pushing and Avoid Pinching/Bending Cleanse incision/area with: Soap & Water and Keep Dressing Clean & Dry Please Follow Up With: Katelynn Driscoll MD When: Call to make an appointment with your doctor for a postop visit in 2 and 6 weeks. Meaningful Use Info Meaningful Use Diagnoses (Choose all that apply): None applicable Discharge Plan Admission Admit Date/Time: 02/14/23 05:15 Attending Provider: Katelynn Driscoll Instructions Forms: Information Additional Instructions / Restrictions: follow up February 24 with at 1010 Discharge Orders/Prescriptions Prescriptions: New oxycodone-acetaminophen [Percocet] 5-325 mg tablet 1 tab PO Q6H PRN (Reason: pain) 7 Days Qty: 20 0RF naproxen [naproxen] 500 mg tablet 500 mg PO BID PRN PRN (Reason: Pain) Qty: 30 1RF clindamycin HCl 300 mg capsule 300 mg PO Q8H 7 Days Qty: 21 0RF Continued prenat.vits,ty,tqa-jntm-skydr Tablet 1 tab PO DAILY Vyvanse 40 mg Capsule 40 mg PO DAILY Vistaril 25 mg PO/SL DAILY PRN (Reason: ) Disposition Disposition (needs filled in before D/C Order can be placed): Home, Self Care
== END 2023-02-17 11:45 | disposition home or self-care (01) | DRG 783 ==
PROVIDERS: Admitting Provider Obstetrics & Gynecology; Visit Provider Obstetrics & Gynecology
PROC: 10D00Z1 Extraction of Products of Conception, Low, Open Approach (ICD-10-PCS; CPT 59514; principal; 2023-02-14 06:55)
DX: O34.219 Maternal care for unspecified type scar from previous cesarean delivery (principal); O99.42 Diseases of the circulatory system complicating childbirth; T81.30XA Disruption of wound, unspecified, initial encounter; I27.20 Pulmonary hypertension, unspecified; O26.23 Pregnancy care for patient with recurrent pregnancy loss, third trimester; L90.5 Scar conditions and fibrosis of skin; J45.909 Unspecified asthma, uncomplicated; F41.9 Anxiety disorder, unspecified; F91.9 Conduct disorder, unspecified; O99.52 Diseases of the respiratory system complicating childbirth; Z3A.38 38 weeks gestation of pregnancy; Z30.2 Encounter for sterilization; O99.72 Diseases of the skin and subcutaneous tissue complicating childbirth; F90.0 Attention-deficit hyperactivity disorder, predominantly inattentive type; O99.344 Other mental disorders complicating childbirth; Z87.891 Personal history of nicotine dependence; Z37.0 Single live birth; Z87.440 Personal history of urinary (tract) infections
CPT/HCPCS: 59050; 85025; 85027; 86780; 86850; 86900; 86901; 88302; 88305; 99221; J7120; A4216; G0378; J2405

== ENCOUNTER 2023-03-11 13:10 | Outpatient (RCR) | payer OTHER, SELFPAY ==
[2023-03-04 11:13] VITALS: BP 126/68; PULSE 86; RESP 16; BMI 27.6
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
[2023-03-11 13:16] VITALS: BP 96/70; PULSE 70; TEMP 36.4; BMI 27.6
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
== END 2023-03-23 23:59 | disposition home or self-care (01) ==
LOC: WC 13:10
PROVIDERS: Referring Provider Obstetrics & Gynecology; Visit Provider Physician Assistant
DX: T81.30XA Disruption of wound, unspecified, initial encounter (principal); Z87.891 Personal history of nicotine dependence
CPT/HCPCS: 11042; 99213; G0463

== ENCOUNTER → 2023-03-28 | Outpatient (CLI) | payer OTHER, SELFPAY ==
[2023-04-05 13:08] LABS: HPV APTIMA, High Risk Negative (Negative)
== END | disposition home or self-care (01) ==
LOC: LABSPEC 13:18
PROVIDERS: Referring Provider Obstetrics & Gynecology; Visit Provider Obstetrics & Gynecology
DX: Z01.419 Encounter for gynecological examination (general) (routine) without abnormal findings (principal)
CPT/HCPCS: 87624; 88175; G0145

== ENCOUNTER 2023-04-01 10:34 | Outpatient (RCR) | payer OTHER, SELFPAY ==
[2023-03-24 00:12] VITALS: BP 96/70; PULSE 70; RESP 16; TEMP 36.4; BMI 27.6
[2023-04-01 10:53] VITALS: BP 102/71; PULSE 75; RESP 18; TEMP 36.2; BMI 27.6
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
== END 2023-04-22 23:59 | disposition home or self-care (01) ==
LOC: WC 10:34
PROVIDERS: Referring Provider Obstetrics & Gynecology; Visit Provider Physician Assistant
DX: T81.30XA Disruption of wound, unspecified, initial encounter (principal)
CPT/HCPCS: 99213; G0463

== ENCOUNTER → 2023-04-25 | Outpatient (CLI) | payer OTHER, SELFPAY ==
--- NOTE | 2023-04-25 08:41 | US_ITS ---
STUDY: ULTRASOUND OF THE FEMALE PELVIS - COMPLETE REASON FOR EXAM: Female, 28 years old. pelvic pain LMP: Unknown. TECHNIQUE: Transabdominal TECHNICAL QUALITY: Adequate. COMPARISON: None. FINDINGS: The uterus is anteverted and is in a midline position. The uterus measures 9.2 x 5.6 x 3.6 cm. Slight fluid in the endocervical canal. The endometrium measures 7 mm in thickness, and is hyperechoic. There is no demonstrated endometrial mass. There is no demonstrated myometrial mass. I.U.D. - The patient does not have an I.U.D. The right ovary is non-visualized (surgically absent). The left ovary is visualized. The left ovary measures 3.0 x 2.0 x 1.7 cm. There is no left ovarian cyst or ovarian mass. There is no visualized left adnexal mass or complex lesion. There is normal arterial and normal venous vascularity. There is minimal fluid in the cul-de-sac. US/Pelvic (Non ) IMPRESSION: Unremarkable female pelvis. Electronically Signed: Cornelio Cowart (Brooks), at 8:24 EDT ,
== END | disposition home or self-care (01) ==
LOC: OPUS 08:39
PROVIDERS: Referring Provider Obstetrics & Gynecology; Visit Provider Obstetrics & Gynecology
DX: R10.2 Pelvic and perineal pain (principal)
CPT/HCPCS: 76830; 76856

== ENCOUNTER → 2023-07-22 | Outpatient (CLI) | payer OTHER, SELFPAY | END | disposition home or self-care (01) | PROVIDERS: Visit Provider Registered Nurse | DX: N89.8 Other specified noninflammatory disorders of vagina (principal); R30.0 Dysuria | CPT/HCPCS: 87070; 87086; 87088; 87186; 87205 ==

== ENCOUNTER → 2023-12-27 | Outpatient (CLI) | payer OTHER, SELFPAY ==
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
== END | disposition home or self-care (01) ==
LOC: LABSPEC 15:39
PROVIDERS: Referring Provider Nurse Practitioner Women's Health; Visit Provider Nurse Practitioner Women's Health
DX: N89.8 Other specified noninflammatory disorders of vagina (principal)
CPT/HCPCS: 87070; 87205